=== PATIENT | female | born 1995 | race Two or more races ===

== ENCOUNTER 2025-02-09 22:33 | Inpatient (IN) | payer MEDICAID, OTHER ==
[~2025-02-09] VITALS: Ht 167.6 cm; Wt 53.8 kg
[2025-02-09 23:51] LABS: Hematocrit 30.7 % (36.0-46.0); Hemoglobin 10.8 g/dL (12.2-16.2); Mean Corpuscular Hemoglobin 33.4 pg (28.0-32.0); Mean Corpuscular Volume 95.2 fL (80.0-100.0); Nucleated Red Blood Cells % 0.2 %
[2025-02-10 00:11] LABS: Albumin 4.3 g/dL (3.2-4.8); Alkaline Phosphatase 100 U/L (46-116); Anion Gap 23 (5-15); BUN/Creatinine Ratio 28.8 (10.0-20.0); Blood Urea Nitrogen 17 mg/dL (9-23); Calcium 9.8 mg/dL (8.7-10.4); Carbon Dioxide 24 mmol/L (20-31); Chloride 94 mmol/L (98-107); Glucose 79 mg/dL (74-106); Lipase 33 U/L (12-53); Potassium 3.5 mmol/L (3.5-5.1); Sodium 141 mmol/L (136-145)
[2025-02-10 00:12] LABS: Alanine Aminotransferase 66 U/L (7-40); Bilirubin, Total 7.8 mg/dL (0.2-1.0); Total Protein 9.9 g/dL (5.7-8.2)
--- NOTE | 2025-02-10 00:14 | DVH ---
Exam: CT CT AB PEL WO CON-NO ORAL OR IV History: abd pain Comparison Study: None Technique: Multidetector spiral CT of the abdomen was performed from lung bases to pubic symphysis. Imaging was performed without IV contrast. Axial, coronal and sagittal multiplanar reformats were obtained from the axial data set by the technologist. Radiation Dose : 1. Abdomen/Pelvis: CTDIvol 5.1 mGy, DLP 307.11 mGy*cm. Findings: Evaluation of solid organs is limited due to lack of intravenous contrast use. Lung Bases: No acute or significant lung base finding. Normal heart size. No pleural or pericardial effusion. Liver: The liver is steatotic and enlarged, measuring 22.3 cm in craniocaudal dimension. No focal lesions. Gallbladder and Biliary Tree: Cholelithiasis. Spleen: Enlarged, measuring 16.2 cm. Pancreas: The pancreas is grossly normal in appearance. Adrenal Glands: Unremarkable Kidneys: Kidneys are grossly normal without calculi or hydronephrosis. Bladder: Grossly unremarkable for degree of distention. Bowel: The stomach is grossly normal in appearance. Small bowel and colon are normal in caliber and distribution. The appendix is normal. Ascites: Absent Lymphadenopathy: No mesenteric, retroperitoneal or periportal lymphadenopathy. Abdominal Wall and Mesentery: Unremarkable. Vasculature: The visualized abdominal aorta is normal in size and caliber. Evaluation of abdominal and pelvic vessels is limited due to lack of intravenous contrast. Pelvic Organs: Unremarkable Musculoskeletal: No aggressive focal bony lesions, acute fractures or dislocation. IMPRESSION: 1. Hepatosplenomegaly. 2. Cholelithiasis. Radiation optimization: All CT scans at this facility use at least one of these dose optimization techniques: automated exposure control mA and/or kV adjustment per patient size (includes targeted exams where dose is matched to clinical indication) or iterative reconstruction.
--- NOTE | 2025-02-10 00:32 | ED.PDOC ---
GI ASSESSMENT HPI Comments 29-year-old female complaining of generalized abdominal pain which started today. States she had some mild nausea and vomiting yesterday. Had also been experiencing some mild constipation. Says yesterday she did have a beer, thinks that may have set off her nausea and vomiting. Says she also noticed that she was more yellow yesterday and continued to get worse today. Says she has not been able to hold any fluid or food down today. Says she has also been constipated. Does report a history of anemia which she has had transfusions for, also history of cirrhosis. States her last menstrual cycle was September 08, 2024. Patient denies any other drug use. Chief Complaint: Abdominal Pain Time Seen by MD: 22:37 Reviewed Notes: Nurses Notes Allergies: Coded Allergies: NO KNOWN ALLERGIES (Unverified , 02/09/25) Information Source: Patient Mode of Arrival: Wheelchair Past Medical History PAST MEDICAL HISTORY: Anemia Surgical History: Denies all surgeries CLINICAL THERAPIST History: No Pertinent CLINICAL THERAPIST History Constitutional: reports: malaise; denies: chills, diaphoresis, fatigue, fever, sweats, weakness, others EENTM: denies: blurred vision, double vision, ear bleeding, ear discharge, ear drainage, ear pain, ear ringing, eye pain, eye redness, hearing loss, mouth pain, mouth swelling, nasal discharge, nose bleeding, nose congestion, nose pain, photophobia, tearing, throat pain, throat swelling, voice changes, others Respiratory: denies: cough, hemoptysis, orthopnea, SOB at rest, shortness of breath, SOB with excertion, stridor, wheezing, others Cardiovascular: denies: chest pain, dizzy spells, diaphoresis, Dyspnea on exertion, edema, irregular heart beat, left arm pain, lightheadedness, palpitations, PND, syncope, others Gastrointestinal: reports: nausea, vomiting; denies: abdomen distended, abdominal pain, blood streaked bowels, constipated, diarrhea, dysphagia, difficulty swallowing, hematemesis, melena, poor appetite, poor fluid intake, rectal bleeding, rectal pain, others Genitourinary: denies: abnormal vagina bleeding, burning, dyspareunia, dysuria, flank pain, frequency, hematuria, incontinence, pain, , vagina discharge, urgency, others Neurological: denies: dizziness, fainting, headache, left sided numbness, left sided weakness, numbness, paresthesia, pre-existing deficit, right sided numbn ess, right sided weakness, seizure, speech problems, tingling, tremors, weakness, others Musculoskeletal: denies: back pain, gout, joint pain, joint swelling, muscle pain, muscle stiffness, neck pain, others Integumetry: reports: bruises, change in color; denies: change in hair/nails, dryness, laceration, lesions, lumps, rash, wounds, others Physical Exam General Appearance: Moderate Distress, Normal HEENT: Normal ENT Inspection, Pharynx Normal, TMs Normal Neck: Full Range of Motion, Non-Tender, Normal, Normal Inspection Respiratory: Chest Non-Tender, Lungs Clear, No Accessory Muscle Use, No Respiratory Distress, Normal Breath Sounds Cardiovascular: No Edema, No JVD, No Murmur, No Gallop, Normal Peripheral Pulses, Regular Rate/Rhythm Breast Exam: Deferred Gastrointestinal: Diffuse (Diffuse abdominal tenderness. Abdomen is soft flat.), Normal Bowel Sounds, Soft Genitalia: Deferred Pelvic: Deferred Rectal: Deferred Extremities: No calf tenderness, Normal capillary refill, Normal inspection, Normal range of motion, Non-tender, No pedal edema Musculoskeletal : Apperance: Normal Neurologic: Alert, dough puncher II-XII nml as Tested, No Motor Deficits, Normal Affect, Normal Mood, No Sensory Deficits Cerebellar Function: Normal Reflexes: Normal Skin: Dry, Jaundice, Warm Lymphatic: No Adenopathy Was a procedure done? Was a procedure done?: No GI differential Dx Differential Diagnosis: Bowel Obstruction, Cholangitis, Cholecystitis, Gastritis/PUD, Gastroenteritis, GI hemorrhage X-Ray, Labs, Meds, VS Vital Signs Date Time Temp Pulse Resp B/P (MAP) Pulse Ox O2 Delivery O2 Flow Rate FiO2 02/09/25 22:48 98.6 122 20 134/93 97 98.6 Lab Test 02/09/25 23:40 Range/Units White Blood Count 8.6 4.4-10.8 10^3/uL Red Blood Count 3.23 L 4.0-5.20 10^6/uL Hemoglobin 10.8 L 12.2-16.2 g/dL Hematocrit 30.7 L 36.0-46.0 % Mean Corpuscular Volume 95.2 80.0-100.0 fL Mean Corpuscular Hemoglobin 33.4 H 28.0-32.0 pg Mean Corpuscular Hemoglobin Concent 35.0 32.0-36.0 g/dL Red Cell Distribution Width 14.6 H 11.8-14.3 % Platelet Count 80 L 140-450 10^3/uL Mean Platelet Volume 7.3 6.9-10.8 fL Neutrophils (%) (Auto) 85.7 H 37.0-80.0 % Lymphocytes (%) (Auto) 9.4 L 10.0-50.0 % Monocytes (%) (Auto) 3.1 0.0-12.0 % Eosinophils (%) (Auto) 0.3 0.0-7.0 % Basophils (%) (Auto) 1.5 0.0-2.0 % Neutrophils # (Auto) 7.4 1.6-8.6 10 ^3/uL Lymphocytes # (Auto) 0.8 0.4-5.4 10 ^3/uL Monocytes # (Auto) 0.3 0-1.3 10 ^3/uL Eosinophils # (Auto) 0 0-0.8 10 ^3/uL Basophils # (Auto) 0.1 0-0.2 10 ^3/uL Nucleated Red Blood Cells 0.2 % Sodium Level 141 136-145 mmol/L Potassium Level 3.5 3.5-5.1 mmol/L Chloride Level 94 L 98-107 mmol/L Carbon Dioxide Level 24 20-31 mmol/L Anion Gap 23 H 5-15 Blood Urea Nitrogen 17 9-23 mg/dL Creatinine 0.59 0.550-1.02 mg/dL Glomerular Filtration Rate Calc 123 >90 mL/min BUN/Creatinine Ratio 28.8 H 10.0-20.0 Serum Glucose 79 74-106 mg/dL Calcium Level 9.8 8.7-10.4 mg/dL Total Bilirubin 7.8 H 0.2-1.0 mg/dL Aspartate Amino Transferase (AST) 227 H 13-40 U/L Alanine Aminotransferase (ALT) 66 H 7-40 U/L Alkaline Phosphatase 100 46-116 U/L Total Protein 9.9 H 5.7-8.2 g/dL Albumin 4.3 3.2-4.8 g/dL Lipase 33 12-53 U/L X-Ray, Labs, Meds, VS Comment Patient has elevated T bili and elevated liver enzymes CT scan shows cholelithiasis with no obstructions Patient will be admitted for hyperbilirubinemia, cholelithiasis, a retractable abdominal pain, cyclical vomiting Recommend GI consult in the morning Patient hemodynamically stable Time of 1ST Reevaluation: 00:44 Reevaluation 1ST: Unchanged Patient Education/Counseling: Diagnosis, Treatment, Need For Follow Up Family Education/Counseling: Diagnosis SEPSIS Sepsis Screen Date sepsis recognized/suspect: Feb 09, 2025 Time Sepsis recognized/suspect: 2249 Recent Procedure: No On Antibiotic Therapy: No Respiratory Rate >20: No Heart Rate >90: Yes Temp<36 C (96.8 F) or >38.3 C: No SBP <90 or MAP <65 mmHG: No New Acute Mental Status Change: No Is the patient on CPAP, BIPAP,: No Physician Orders Ct Ab Pel Wo Con-No Oral Or Iv (02/09/25 23:20) Urinalysis (02/09/25 23:20) Drug Screen (02/09/25 23:20) Ondansetron Hcl (Zofran) (02/10/25 00:45) Sodium Chloride 0.9% (02/10/25 00:45) Vital Signs Date Time Temp Pulse Resp B/P (MAP) Pulse Ox O2 Delivery O2 Flow Rate FiO2 02/09/25 22:48 98.6 122 20 134/93 97 98.6 Laboratory Tests Test 02/09/25 23:40 White Blood Count 8.6 10^3/uL (4.4-10.8) Departure 1 Departure Time of Disposition: 00:29 Impression: Primary Impression: Hyperbilirubinemia Additional Impressions: Cholelithiasis Qualified Codes: K80.20 - Calculus of gallbladder without cholecystitis without obstruction Intractable abdominal pain Disposition: ADMITTED INPATIENT Condition: Stable Critical Care Note Critical Care Time?: No Stability Stability form required: No Heart Score Heart Score: Heart Score Response (Comments) Value History N/A 0 EKG N/A 0 Age N/A 0 Risk Factors N/A 0 Troponin N/A 0 Total 0 YEFRI SULLIVAN Feb 10, 2025 00:32
[2025-02-10] MEDS: ONDANSETRON HCL 4 MG/2 ML VIAL IV ONE (01:08)
[2025-02-10] MEDS: SODIUM CHLORIDE 0.9% 1,000 ML IV ONE (01:08)
[2025-02-10] MEDS ORDERED: MORPHINE SULFATE INJ 2 MG/ml SYRG IV PRN (01:15)
[2025-02-10] MEDS ORDERED: ONDANSETRON HCL 4 MG/2 ML VIAL IV PRN (01:15)
[2025-02-10] MEDS: PANTOPRAZOLE 40 MG TAB PO ONE (02:06)
--- NOTE | 2025-02-10 03:54 | DVHHP2 ---
History of Present Illness Reason for Visit: Abdominal pain History of Present Illness 29-year-old female presents for evaluation of abdominal pain. Patient with a history of liver cirrhosis secondary to alcohol abuse currently an active drinker reports a one day history of mid sharp abdominal pain with associated nausea and vomiting. Denies hematemesis or melena. No other acute complaints. Past Medical History Liver cirrhosis Past Surgical History Denies Family History Noncontributory Smoke: No ALCOHOL: heavy Drugs: None Lives: with Family Review of Systems Review of Systems Review of systems are currently negative otherwise addressed in HPI. Allergies: Coded Allergies: NO KNOWN ALLERGIES (Unverified , 02/09/25) Medications Current Medications Medications Dose Ordered Sig/Sofia Route Start Time Stop Time Status Last Admin Dose Admin Pantoprazole Sodium 40 mg DAILY@0600 PO 02/10/25 06:00 Tramadol HCl 50 mg Q4HP PRN PO 02/10/25 01:15 Ondansetron HCl 4 mg Q4HP PRN IV 02/10/25 01:15 Morphine Sulfate 2 mg Q8HPRN PRN IV 02/10/25 01:15 Chlordiazepoxide HCl 25 mg Q6HPRN PRN PO 02/10/25 01:15 Folic Acid 1 mg DAILY PO 02/10/25 10:00 Thiamine HCl 100 mg DAILY PO 02/10/25 10:00 Exam Vital Signs Vital Signs Date Time Temp Pulse Resp B/P (MAP) Pulse Ox O2 Delivery O2 Flow Rate FiO2 02/09/25 22:48 98.6 122 20 134/93 97 98.6 Exam Gen: 29-year-old female in mild distress Skin: Warm, dry, jaundice, no rash. HEENT: Normocephalic atraumatic, mucous membranes moist and pink. Neck: Cervical and supraclavicular nodes normal without enlargement, trachea is midline, thyroid gland is normal without masses. Pulmonary: Clear to auscultation and percussion bilaterally. Cardiac: Regular rate and rhythm. No murmur Abdomen: Soft, nontender, nondistended, bowel sounds present all 4 quadrants, no guarding, no rigidity, no organomegaly. Extremities: No cyanosis, clubbing, no edema Neuro: Cranial nerves II through XII grossly intact, normal affect and speech, no focal motor deficits. Labs/Xrays ORDERING PHYSICIAN: BAE*,CHRISTOPHER E DULITE MACHINE BLUER PROCEDURE(s): ABPL - CT AB PEL WO CON-NO ORAL OR IV REASON: abd pain ORDER NUMBER(s): [id number], ACCESSION NUMBER(s): [id number] Exam: CT CT AB PEL WO CON-NO ORAL OR IV History: abd pain Comparison Study: None Technique: Multidetector spiral CT of the abdomen was performed from lung bases to pubic symphysis. Imaging was performed without IV contrast. Axial, coronal and sagittal multiplanar reformats were obtained from the axial data set by the technologist. Radiation Dose : 1. Abdomen/Pelvis: CTDIvol 5.1 mGy, DLP 307.11 mGy*cm. Findings: Evaluation of solid organs is limited due to lack of intravenous contrast use. Lung Bases: No acute or significant lung base finding. Normal heart size. No pleural or pericardial effusion. Liver: The liver is steatotic and enlarged, measuring 22.3 cm in craniocaudal dimension. No focal lesions. Gallbladder and Biliary Tree: Cholelithiasis. Spleen: Enlarged, measuring 16.2 cm. Pancreas: The pancreas is grossly normal in appearance. Adrenal Glands: Unremarkable Kidneys: Kidneys are grossly normal without calculi or hydronephrosis. Bladder: Grossly unremarkable for degree of distention. Bowel: The stomach is grossly normal in appearance. Small bowel and colon are normal in caliber and distribution. The appendix is normal. Ascites: Absent Lymphadenopathy: No mesenteric, retroperitoneal or periportal lymphadenopathy. Abdominal Wall and Mesentery: Unremarkable. Vasculature: The visualized abdominal aorta is normal in size and caliber. Evaluation of abdominal and pelvic vessels is limited due to lack of intravenous contrast. Pelvic Organs: Unremarkable Musculoskeletal: No aggressive focal bony lesions, acute fractures or disloc ation. IMPRESSION: 1. Hepatosplenomegaly. 2. Cholelithiasis. Radiation optimization: All CT scans at this facility use at least one of these dose optimization techniques: automated exposure control mA and/or kV adjustment per patient size (includes targeted exams where dose is matched to clinical indication) or iterative reconstruction. ATED BY: CLAY MESSER MD DICTATED DATE/TIME: 02/10/25 0012 Labs Test 02/10/25 01:22 02/09/25 23:40 Range/Units Ammonia 42 H 11-32 umol/L White Blood Count 8.6 4.4-10.8 10^3/uL Red Blood Count 3.23 L 4.0-5.20 10^6/uL Hemoglobin 10.8 L 12.2-16.2 g/dL Hematocrit 30.7 L 36.0-46.0 % Mean Corpuscular Volume 95.2 80.0-100.0 fL Mean Corpuscular Hemoglobin 33.4 H 28.0-32.0 pg Mean Corpuscular Hemoglobin Concent 35.0 32.0-36.0 g/dL Red Cell Distribution Width 14.6 H 11.8-14.3 % Platelet Count 80 L 140-450 10^3/uL Mean Platelet Volume 7.3 6.9-10.8 fL Neutrophils (%) (Auto) 85.7 H 37.0-80.0 % Lymphocytes (%) (Auto) 9.4 L 10.0-50.0 % Monocytes (%) (Auto) 3.1 0.0-12.0 % Eosinophils (%) (Auto) 0.3 0.0-7.0 % Basophils (%) (Auto) 1.5 0.0-2.0 % Neutrophils # (Auto) 7.4 1.6-8.6 10 ^3/uL Lymphocytes # (Auto) 0.8 0.4-5.4 10 ^3/uL Monocytes # (Auto) 0.3 0-1.3 10 ^3/uL Eosinophils # (Auto) 0 0-0.8 10 ^3/uL Basophils # (Auto) 0.1 0-0.2 10 ^3/uL Nucleated Red Blood Cells 0.2 % Sodium Level 141 136-145 mmol/L Potassium Level 3.5 3.5-5.1 mmol/L Chloride Level 94 L 98-107 mmol/L Carbon Dioxide Level 24 20-31 mmol/L Anion Gap 23 H 5-15 Blood Urea Nitrogen 17 9-23 mg/dL Creatinine 0.59 0.550-1.02 mg/dL Glomerular Filtration Rate Calc 123 >90 mL/min BUN/Creatinine Ratio 28.8 H 10.0-20.0 Serum Glucose 79 74-106 mg/dL Calcium Level 9.8 8.7-10.4 mg/dL Total Bilirubin 7.8 H 0.2-1.0 mg/dL Aspartate Amino Transferase (AST) 227 H 13-40 U/L Alanine Aminotransferase (ALT) 66 H 7-40 U/L Alkaline Phosphatase 100 46-116 U/L Total Protein 9.9 H 5.7-8.2 g/dL Albumin 4.3 3.2-4.8 g/dL Lipase 33 12-53 U/L SEPSIS Sepsis Screen Date sepsis recognized/suspect: Feb 09, 2025 Time Sepsis recognized/suspect: 2249 Recent Procedure: No On Antibiotic Therapy: No Respiratory Rate >20: No Heart Rate >90: Yes Temp<36 C (96.8 F) or >38.3 C: No SBP <90 or MAP <65 mmHG: No New Acute Mental Status Change: No Is the patient on CPAP, BIPAP,: No Physician Orders Ct Ab Pel Wo Con-No Oral Or Iv (02/09/25 23:20) Urinalysis (02/09/25 23:20) Drug Screen (02/09/25 23:20) * Gi Dvh Workflow Developer (02/10/25 01:05) Pantoprazole Tablet (Protonix Tablet) (02/10/25 06:00) Tramadol Hcl (Ultram) (02/10/25 01:15) Admit (02/10/25 01:05) Ondansetron Hcl (Zofran) (02/10/25 01:15) Comprehensive Metabolic Panel (02/11/25 04:00) Condition: Stable (02/10/25 01:05) Clear Liq Diet (02/10/25 Breakfast) Bedrest With Bathroom Privileg (02/10/25 01:05) Morphine Sulfate Injection (02/10/25 01:15) Chlordiazepoxide Hcl Capsule (Librium Ca (02/10/25 01:15) Folic Acid Tablet (02/10/25 10:00) Thiamine Tab (02/10/25 10:00) Vital Signs Date Time Temp Pulse Resp B/P (MAP) Pulse Ox O2 Delivery O2 Flow Rate FiO2 02/09/25 22:48 98.6 122 20 134/93 97 98.6 Laboratory Tests Test 02/09/25 23:40 White Blood Count 8.6 10^3/uL (4.4-10.8) Medications Medications Dose Ordered Sig/Sofia Route Start Time Stop Time Status Last Admin Dose Admin Ondansetron HCl 4 mg ONCE ONCE IV 02/10/25 00:45 02/10/25 00:46 DC 02/10/25 01:08 4 MG Pantoprazole Sodium 40 mg ONCE ONCE PO 02/10/25 01:15 02/10/25 01:23 DC 02/10/25 02:06 40 MG Sodium Chloride 1,000 ml @ 1,000 mls/hr Q1H ONCE IV 02/10/25 00:45 02/10/25 01:44 DC 02/10/25 01:08 1,000 MLS/HR Assessment/Plan Assessment/Plan Assessment Acute abdominal pain Liver cirrhosis Jaundice Transaminitis Alcohol abuse Hyperammonemia Plan Admit the patient to [facility] [place]ist GI consult Clear liquid diet Lactulose Pain management Continue treatment per orders. Plan discussed with: Patient My Orders Orders - HUI ASTUDILLO Procedure Category Date Status Time * Gi Dvh Workflow Developer CONS 02/10/25 Transmitted 01:05 Pantoprazole Tablet PHA 02/10/25 In Process (Protonix Tablet) 06:00 Tramadol Hcl (Ultram) PHA 02/10/25 In Process 01:15 Admit ADMIT 02/10/25 Transmitted 01:05 Ondansetron Hcl PHA 02/10/25 In Process (Zofran) 01:15 Comprehensive LAB 02/11/25 Verified Metabolic Panel 04:00 Condition: Stable MELBA 02/10/25 In Process 01:05 Clear Liq Diet DIET 02/10/25 Transmitted Breakfast Bedrest With Bathroom MELBA 02/10/25 In Process Privileg 01:05 Morphine Sulfate PHA 02/10/25 In Process Injection 01:15 Chlordiazepoxide Hcl PHA 02/10/25 In Process Capsule (Librium Ca 01:15 Folic Acid Tablet PHA 02/10/25 In Process 10:00 Thiamine Tab PHA 02/10/25 In Process 10:00 Date of Service: Feb 09, 2025 Billing Provider: HUI ASTUDILLO Common Visit Codes: [id number] INP/OBS CARE (MOD) HUI ASTUDILLO Feb 10, 2025 03:54
[2025-02-10] MEDS: PANTOPRAZOLE 40 MG TAB PO SCH (06:25)
[2025-02-10 11:17] VITALS: RESP 17
[2025-02-10] MEDS ORDERED: DICL-545 (11:29)
[2025-02-10] MEDS: LACTULOSE 20Gm/30ML SOLN PO SCH (11:36)
[2025-02-10] MEDS: THIAMINE HCL 100 MG TAB PO SCH (11:36)
[2025-02-10] MEDS: FOLIC ACID 1 MG TAB PO SCH (11:36)
--- NOTE | 2025-02-10 12:25 | DVHPN2 ---
Subjective feeling well with no tremors Reviewed: H&P Changes from previous H/P or p: No Changes Objective Vitals Vital Signs Date Time Temp Pulse Resp B/P (MAP) Pulse Ox O2 Delivery O2 Flow Rate FiO2 02/10/25 10:31 98.3 109 18 118/61 (80) 98 98.3 General Appearance: Alert, Oriented X3 HEENT: Atraumatic Cardiovascular: Regular rate, Normal S1, Normal S2 Abdomen: Normal bowel sounds Medications Current Medications Medications Dose Ordered Sig/Sofia Route Start Time Stop Time Status Last Admin Dose Admin Pantoprazole Sodium 40 mg DAILY@0600 PO 02/10/25 06:00 02/10/25 06:25 40 MG Tramadol HCl 50 mg Q4HP PRN PO 02/10/25 01:15 Ondansetron HCl 4 mg Q4HP PRN IV 02/10/25 01:15 Morphine Sulfate 2 mg Q8HPRN PRN IV 02/10/25 01:15 Chlordiazepoxide HCl 25 mg Q6HPRN PRN PO 02/10/25 01:15 Folic Acid 1 mg DAILY PO 02/10/25 10:00 02/10/25 11:36 1 MG Thiamine HCl 100 mg DAILY PO 02/10/25 10:00 02/10/25 11:36 100 MG Lactulose 30 ml DAILY PO 02/10/25 10:00 02/10/25 11:36 30 ML Sodium Chloride 1,000 ml @ 125 mls/hr Q8H IV 02/10/25 10:45 Laboratory Results Laboratory Tests 02/09/25 23:40 Chemistry Test 02/09/25 23:40 Albumin 4.3 g/dL (3.2-4.8) Calcium Level 9.8 mg/dL (8.7-10.4) Total Protein 9.9 g/dL (5.7-8.2) H Lipid panel Test 02/09/25 23:40 Lipase 33 U/L (12-53) LFT Test 02/09/25 23:40 Alanine Aminotransferase (ALT) 66 U/L (7-40) H Alkaline Phosphatase 100 U/L (46-116) Aspartate Amino Transferase (AST) 227 U/L (13-40) H Total Bilirubin 7.8 mg/dL (0.2-1.0) H Assessment/Plan Assessment/Plan Acute abdominal pain Liver cirrhosis Jaundice Transaminitis Alcohol abuse Hyperammonemia Monitor LFts monitor for withdrawal lactulose GI consulted PPI BID Plan discussed with: Patient Date of Service: Feb 10, 2025 Billing Provider: RADHA MYLES MD Common Visit Codes: [id number] INP/OBS CARE(HIGH) RADHA MYLES MD Feb 10, 2025 12:25
[2025-02-10 12:35] VITALS: BP 135/67; PULSE 114; RESP 21; TEMP 97.9; O2SAT 98
[2025-02-10] MEDS: MORPHINE SULFATE 4 MG/ML SYR/VIAL IV PRN (13:11)
[2025-02-10] MEDS: SODIUM CHLORIDE 0.9% 1,000 ML IV SCH (13:11)
[2025-02-10 14:45] VITALS: BP 123/71; PULSE 102; RESP 18; TEMP 97.5; O2SAT 96
[2025-02-10] MEDS ORDERED: FOLIC ACID 1 MG in D5W 5% 50 ML INJ ONE (15:00)
--- NOTE | 2025-02-10 15:28 | DVHCONRES ---
Date Seen: Feb 10, 2025 Resident Creating Document: ALEXIS MOJICA RESIDENT Referring Physician Izzy PINA History of Present Illness 29-year-old female presented to ER with a chief complaint of intractable nausea and vomiting and abdominal pain starting gi. Patient reports that she had 2 cups of Tequila on following which she has been experiencing abdominal crampy pain, nausea and vomiting, nonbloody, unable to keep anything down, and therefore she decided to the ER. Patient was recently seen in [facility] for similar reasons after a binge drinking episode where she had upper endoscopy which showed esophageal varices and she required banding for the patient. Patient was visiting cousin on in [place] Past medical history: Chronic alcoholism, likely esophageal varices status post banding, chronic back pain Social history: Lost her house in [facility] in 2024, started drinking heav [place], smokes marijuana Patient seen and examined. Abdomen nontender, normoactive. Tachycardic sinus. Family History: Patient reports no known family medical history. Allergies: Coded Allergies: NO KNOWN ALLERGIES (Unverified , 02/09/25) Home Meds Reported Medications Diclofenac Sodium (Topical) (Aleve Arthritis Pain) 1 % Gel 02/10/25 Current Medications Current Medications Medications (Trade) Dose Ordered Sig/Sofia Route PRN Reason Start Time Stop Time Status Last Admin Pantoprazole Sodium (Protonix Tablet) 40 mg DAILY@0600 PO 02/10/25 06:00 02/10/25 06:25 Tramadol HCl (Ultram) 50 mg Q4HP PRN PO MODERATE PAIN (4-6 PAIN SCALE) 02/10/25 01:15 Ondansetron HCl (Zofran) 4 mg Q4HP PRN IV NAUSEA / VOMITING 02/10/25 01:15 Morphine Sulfate 2 mg Q8HPRN PRN IV SEVERE PAIN (7-10 PAIN SCALE) 02/10/25 01:15 02/10/25 12:43 DC Chlordiazepoxide HCl (Librium Capsule) 25 mg Q6HPRN PRN PO ALCOHOL WITHDRAWAL SYMPTOMS 02/10/25 01:15 Folic Acid 1 mg DAILY PO 02/10/25 10:00 02/10/25 11:36 Thiamine HCl 100 mg DAILY PO 02/10/25 10:00 02/10/25 11:36 Lactulose 30 ml DAILY PO 02/10/25 10:00 02/10/25 11:36 Sodium Chloride 1,000 ml @ 125 mls/hr Q8H IV 02/10/25 10:45 02/10/25 13:11 Morphine Sulfate 2 mg Q8HPRN PRN IV SEVERE PAIN (7-10 PAIN SCALE) 02/10/25 12:45 02/10/25 13:11 Folic Acid 1 mg/ Dextrose 50.2 ml @ 200.8 mls/ hr DAILY INJ 02/11/25 10:00 UNV Vital Signs Vital Signs Date Time Temp Pulse Resp B/P (MAP) Pulse Ox O2 Delivery O2 Flow Rate FiO2 02/10/25 13:41 89 17 110/78 02/10/25 12:35 97.9 98 97.9 02/10/25 11:17 Room Air* 0 21 Physical Exam Patient lying in bed, in no acute distress General: Well-built, afebrile, palor, mucosae are moist Cardiovascular: Tachycardic but Regular S1 and S2. No murmurs, gallops or rubs. No JVD elevation. No pedal edema Respiratory: Normal B/L air entry on room air. Clear lung sounds on auscultation Abdomen: Soft, nontender, nondistended, normoactive bowel sounds, no rebound tenderness, no organomegaly, no masses Genitourinary: Deferred MSK/skin: Mobilizes 4 limbs. Skin is dry and warm Neurological: No motor, no sensitive deficits, normal speech. Pupils are isocoric and reactive. Psych/Mental Status: A/Ox3 Labs/Diagnostic Data Labs Test 02/10/25 01:22 02/09/25 23:40 Range/Units Ammonia 42 H 11-32 umol/L White Blood Count 8.6 4.4-10.8 10^3/uL Red Blood Count 3.23 L 4.0-5.20 10^6/uL Hemoglobin 10.8 L 12.2-16.2 g/dL Hematocrit 30.7 L 36.0-46.0 % Mean Corpuscular Volume 95.2 80.0-100.0 fL Mean Corpuscular Hemoglobin 33.4 H 28.0-32.0 pg Mean Corpuscular Hemoglobin Concent 35.0 32.0-36.0 g/dL Red Cell Distribution Width 14.6 H 11.8-14.3 % Platelet Count 80 L 140-450 10^3/uL Mean Platelet Volume 7.3 6.9-10.8 fL Neutrophils (%) (Auto) 85.7 H 37.0-80.0 % Lymphocytes (%) (Auto) 9.4 L 10.0-50.0 % Monocytes (%) (Auto) 3.1 0.0-12.0 % Eosinophils (%) (Auto) 0.3 0.0-7.0 % Basophils (%) (Auto) 1.5 0.0-2.0 % Neutrophils # (Auto) 7.4 1.6-8.6 10 ^3/uL Lymphocytes # (Auto) 0.8 0.4-5.4 10 ^3/uL Monocytes # (Auto) 0.3 0-1.3 10 ^3/uL Eosinophils # (Auto) 0 0-0.8 10 ^3/uL Basophils # (Auto) 0.1 0-0.2 10 ^3/uL Nucleated Red Blood Cells 0.2 % Sodium Level 141 136-145 mmol/L Potassium Level 3.5 3.5-5.1 mmol/L Chloride Level 94 L 98-107 mmol/L Carbon Dioxide Level 24 20-31 mmol/L Anion Gap 23 H 5-15 Blood Urea Nitrogen 17 9-23 mg/dL Creatinine 0.59 0.550-1.02 mg/dL Glomerular Filtration Rate Calc 123 >90 mL/min BUN/Creatinine Ratio 28.8 H 10.0-20.0 Serum Glucose 79 74-106 mg/dL Calcium Level 9.8 8.7-10.4 mg/dL Total Bilirubin 7.8 H 0.2-1.0 mg/dL Aspartate Amino Transferase (AST) 227 H 13-40 U/L Alanine Aminotransferase (ALT) 66 H 7-40 U/L Alkaline Phosphatase 100 46-116 U/L Total Protein 9.9 H 5.7-8.2 g/dL Albumin 4.3 3.2-4.8 g/dL Lipase 33 12-53 U/L Assessment Acute alcoholic intoxication Alcoholic hepatitis-meld score pending History of esophageal varices status post banding Anemia likely mixed, macrocytic and microcytic Transaminitis Plan: Recommendation Continue monitoring for withdrawal, telemetry monitoring, monitor electrolytes. We recommend conservative management at this time. Meld score to be calculated one labs are back. Patient recently had EGD at [facility] which showed esophageal varices and patient underwent pending Follow up with liver ultrasound, FRANK, hepatitis panel, direct bilirubin Ativan PRN, Librium scheduled Supplement thiamine folic acid Pantoprazole 40 mg IV b.i.d. Clear liquid diet IV fluids Plan discussed with patient in which all questions have been answered Case discussed with Dr. Novoa Plan discussed with: Patient ALEXIS MOJICA RESIDENT Feb 10, 2025 15:28
[2025-02-10 16:12] LABS: INR 1.5 (0.9-1.15); Partial Thromboplastin Time 33.5 SEC (24.5-34.5); Prothrombin Time 15.3 sec (9.3-11.8)
[2025-02-10 16:15] LABS: Alkaline Phosphatase 91 U/L (46-116); Anion Gap 17 (5-15); BUN/Creatinine Ratio 22.4 (10.0-20.0); Blood Urea Nitrogen 17 mg/dL (9-23); Calcium 9.7 mg/dL (8.7-10.4); Carbon Dioxide 27 mmol/L (20-31); Glucose 76 mg/dL (74-106); Magnesium 1.9 mg/dL (1.6-2.6); Sodium 140 mmol/L (136-145)
[2025-02-10 16:16] LABS: Alanine Aminotransferase 65 U/L (7-40); Albumin 4.1 g/dL (3.2-4.8); Bilirubin, Total 7.6 mg/dL (0.2-1.0); Chloride 96 mmol/L (98-107); Potassium 3.4 mmol/L (3.5-5.1); Total Protein 9.1 g/dL (5.7-8.2)
[2025-02-10 16:19] LABS: Ferritin 235.3 ng/mL (10-291)
[2025-02-10 16:25] LABS: Iron 250.0 ug/dL (50-170)
[2025-02-10 16:28] LABS: Total Iron Binding Capacity 269.0 ug/dL (250-425)
--- NOTE | 2025-02-10 16:51 | DVH ---
INDICATION: transamnitis TECHNIQUE: Multiple real-time sonographic images were obtained of the right upper quadrant. COMPARISON: None FINDINGS: The liver demonstrates homogeneous echotexture without focal mass lesions. The liver measures 21.1 cm. There is no intrahepatic or extrahepatic ductal dilatation. The common duct measures 0.6 cm. Cholelithiasis. The gallbladder wall measures 0.2 cm and is within normal limits. The right kidney measures 12.8 cm. The right kidney is normal in contour, size, and shape. The echogenicity is normal. There is no hydronephrosis. The pancreas is not well visualized due to overlying bowel gas. IMPRESSION: Cholelithiasis. Hepatomegaly.
[2025-02-10 16:54] VITALS: BP 121/67; PULSE 117; RESP 16; TEMP 97.2; O2SAT 96
[2025-02-10 20:00] VITALS: PULSE 90; RESP 16; O2SAT 96
[2025-02-10 21:00] VITALS: BP 120/66; PULSE 90; RESP 16; TEMP 98.1; O2SAT 96
[2025-02-10] MEDS: PANTOPRAZOLE 40 MG/10 ML VIAL INJ IV SCH (22:33)
[2025-02-10] MEDS: SUCRALFATE 1 GM/10 ML ORAL SUSP PO SCH (22:33)
[2025-02-11] VITALS (7 sets, daily range): BP systolic 118–128; BP diastolic 72–77; PULSE 74–100; RESP 17–20; TEMP 97–98.6; O2SAT 93–98
[2025-02-11 05:41] LABS: Albumin 3.5 g/dL (3.2-4.8); Alkaline Phosphatase 80 U/L (46-116); Anion Gap 12 (5-15); BUN/Creatinine Ratio 14.3 (10.0-20.0); Blood Urea Nitrogen 10 mg/dL (9-23); Calcium 9.0 mg/dL (8.7-10.4); Carbon Dioxide 30 mmol/L (20-31); Glucose 76 mg/dL (74-106); Sodium 138 mmol/L (136-145); Total Protein 8.1 g/dL (5.7-8.2)
[2025-02-11 05:44] LABS: Alanine Aminotransferase 62 U/L (7-40); Bilirubin, Total 6.0 mg/dL (0.2-1.0); Chloride 96 mmol/L (98-107); Potassium 3.0 mmol/L (3.5-5.1)
[2025-02-11] MEDS ORDERED: FOLIC ACID 1 MG in D5W 5% 50 ML INJ SCH (10:00)
--- NOTE | 2025-02-11 11:55 | DVHPN2 ---
Progress Note Date Seen: Feb 11, 2025 Resident Creating Document: ALEXIS MOJICA RESIDENT Medical Necessity Reason Pt with a Central, PICC or Fol: No Subjective Review of Systems 29-year-old female presented to ER with a chief complaint of intractable nausea and vomiting and abdominal pain starting Thanksgiving. Patient reports that she had 2 cups of Tequila on gi following which she has been experiencing abdominal crampy pain, nausea and vomiting, nonbloody, unable to keep anything down, and therefore she decided to the ER. Patient was recently seen in [facility] for similar reasons after a binge drinking episode where she had upper endoscopy which showed esophageal varices and she required banding for the patient. Patient was visiting cousin on in [place] Past medical history: Chronic alcoholism, likely esophageal varices status post banding, chronic back pain Social history: Lost her house in [place] in 2024, started drinking heavily, smokes marijuana 02/10-Patient seen and examined. Abdomen nontender, normoactive. Tachycardic sinus. 02/11 patient seen and examined. Reports feeling better. FRANK positive. Objective vital signs Vital Sign Date Time Temp Pulse Resp B/P (MAP) Pulse Ox O2 Delivery O2 Flow Rate FiO2 02/11/25 09:00 97.0 100 20 118/74 (89) 98 97.0 02/11/25 08:00 Room Air* 0 21 Total Intake and Output 02/10/25 02/10/25 02/11/25 15:00 23:00 07:00 Intake Total 700 ml 410 ml Balance 700 ml 410 ml medications Current Medications Medications Dose Ordered Sig/Sofia Route Start Time Stop Time Status Last Admin Dose Admin Tramadol HCl 50 mg Q4HP PRN PO 02/10/25 01:15 02/11/25 09:52 50 MG Ondansetron HCl 4 mg Q4HP PRN IV 02/10/25 01:15 Chlordiazepoxide HCl 25 mg Q6HPRN PRN PO 02/10/25 01:15 Folic Acid 1 mg DAILY PO 02/10/25 10:00 02/11/25 09:47 1 MG Thiamine HCl 100 mg DAILY PO 02/10/25 10:00 02/11/25 09:47 100 MG Lactulose 30 ml DAILY PO 02/10/25 10:00 02/11/25 09:47 30 ML Sodium Chloride 1,000 ml @ 125 mls/hr Q8H IV 02/10/25 10:45 02/11/25 09:52 125 MLS/HR Morphine Sulfate 2 mg Q8HPRN PRN IV 02/10/25 12:45 02/10/25 13:11 2 MG Pantoprazole Sodium 40 mg BID IV 02/10/25 22:00 02/11/25 09:48 40 MG Sucralfate 1 gm BID@0600,2200 PO 02/10/25 22:00 02/11/25 06:11 1 GM Examination Patient lying in bed, in no acute distress General: Well-built, afebrile, palor, mucosae are moist Cardiovascular: Tachycardic but Regular S1 and S2. No murmurs, gallops or rubs. No JVD elevation. No pedal edema Respiratory: Normal B/L air entry on room air. Clear lung sounds on auscultation Abdomen: Soft, nontender, nondistended, normoactive bowel sounds, no rebound tenderness, no organomegaly, no masses Genitourinary: Deferred MSK/skin: Mobilizes 4 limbs. Skin is dry and warm Neurological: No motor, no sensitive deficits, normal speech. Pupils are isocoric and reactive. 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 Started prednisolone 40 mg daily p.o. FRANK positive, follow up with the antimitochondrial, anti-smooth muscle antibody Ursodiol b.i.d. for 7 days We will consider liver biopsy Continue monitoring for withdrawal, telemetry monitoring, monitor electrolytes. Patient recently had EGD at [facility] which showed esophageal varices and patient underwent pending Liver ultrasound shows cholelithiasis. Hepatomegaly. Follow up with hepatitis panel. Ativan PRN, Librium scheduled Supplement thiamine folic acid Pantoprazole 40 mg IV b.i.d. Advanced diet as tolerated. IV fluids Plan discussed with patient in which all questions have been answered Case discussed with Dr. Novoa Plan discussed with: Patient My Orders My Orders Orders - ALEXIS MOJICA Procedure Category Date Status Time Drug Screen LAB 02/10/25 Logged 14:59 Acute Hepatitis Panel LAB 02/10/25 In Process 15:01 Comprehensive LAB 02/10/25 In Process Hepatitis Panel 15:01 LIVER US 02/10/25 Resulted 15:02 Pantoprazole PHA 02/10/25 In Process (Protonix) 22:00 Sucralfate Susp PHA 02/10/25 In Process (Carafate Susp) 22:00 ALEXIS MOJICA Feb 11, 2025 11:55
[2025-02-11] MEDS: URSODIOL 300 MG CAP PO SCH (13:03)
[2025-02-11] MEDS: predniSONE 20 MG TAB PO ONE (13:03)
--- NOTE | 2025-02-11 15:01 | DVHPN2 ---
Subjective feeling well with no tremors Reviewed: H&P Changes from previous H/P or p: No Changes Objective Vitals Vital Signs Date Time Temp Pulse Resp B/P (MAP) Pulse Ox O2 Delivery O2 Flow Rate FiO2 02/11/25 13:00 98.3 98 17 128/73 (91) 97 98.3 02/11/25 08:00 Room Air* 0 21 Intake/Output Intake and Output 02/11/25 07:00 Intake Total 1110 ml Balance 1110 ml Intake Oral 710 ml IV Total 400 ml # Voids 2 General Appearance: Alert, Oriented X3 HEENT: Atraumatic Cardiovascular: Regular rate, Normal S1, Normal S2 Abdomen: Normal bowel sounds Medications Current Medications Medications Dose Ordered Sig/Osfia Route Start Time Stop Time Status Last Admin Dose Admin Tramadol HCl 50 mg Q4HP PRN PO 02/10/25 01:15 02/11/25 09:52 50 MG Ondansetron HCl 4 mg Q4HP PRN IV 02/10/25 01:15 Chlordiazepoxide HCl 25 mg Q6HPRN PRN PO 02/10/25 01:15 Folic Acid 1 mg DAILY PO 02/10/25 10:00 02/11/25 09:47 1 MG Thiamine HCl 100 mg DAILY PO 02/10/25 10:00 02/11/25 09:47 100 MG Lactulose 30 ml DAILY PO 02/10/25 10:00 02/11/25 09:47 30 ML Sodium Chloride 1,000 ml @ 125 mls/hr Q8H IV 02/10/25 10:45 02/11/25 09:52 125 MLS/HR Morphine Sulfate 2 mg Q8HPRN PRN IV 02/10/25 12:45 02/10/25 13:11 2 MG Pantoprazole Sodium 40 mg BID IV 02/10/25 22:00 02/11/25 09:48 40 MG Sucralfate 1 gm BID@0600,2200 PO 02/10/25 22:00 02/11/25 06:11 1 GM Prednisone 40 mg DAILY PO 02/12/25 10:00 Ursodiol 300 mg BID PO 02/11/25 12:00 02/17/25 23:33 02/11/25 13:03 300 MG Laboratory Results Laboratory Tests 02/09/25 23:40 02/11/25 04:36 Chemistry Test 02/10/25 15:29 02/11/25 04:36 Albumin 4.1 g/dL (3.2-4.8) 3.5 g/dL (3.2-4.8) Calcium Level 9.7 mg/dL (8.7-10.4) 9.0 mg/dL (8.7-10.4) Magnesium Level 1.9 mg/dL (1.6-2.6) Total Protein 9.1 g/dL (5.7-8.2) H 8.1 g/dL (5.7-8.2) Coagulation Test 02/10/25 15:29 Prothrombin Time 15.3 sec (9.3-11.8) H Prothrombin Time INR 1.50 (0.9-1.15) H Activated Partial Thromboplast Time 33.5 SEC (24.5-34.5) LFT Test 02/10/25 15:29 02/11/25 04:36 Alanine Aminotransferase (ALT) 65 U/L (7-40) H 62 U/L (7-40) H Alkaline Phosphatase 91 U/L (46-116) 80 U/L (46-116) Aspartate Amino Transferase (AST) 219 U/L (13-40) H 218 U/L (13-40) H Direct Bilirubin 2.8 mg/dL (<0.3) H Total Bilirubin 7.6 mg/dL (0.2-1.0) H 6.0 mg/dL (0.2-1.0) H HgA1c, TSH Test 02/10/25 15:29 Thyroid Stimulating Hormone (TSH) 0.67 uIU/mL (0.55-4.78) Assessment/Plan Assessment/Plan Acute abdominal pain Liver cirrhosis Jaundice Transaminitis Alcohol abuse Hyperammonemia Monitor LFts monitor for withdrawal lactulose GI consulted PPI BID Plan discussed with: Patient Date of Service: Feb 11, 2025 Billing Provider: RADHA MYLES MD Common Visit Codes: [id number] INP/OBS CARE(HIGH) RADHA MYLES MD Feb 11, 2025 15:01
[2025-02-12] VITALS (8 sets, daily range): BP systolic 116–128; BP diastolic 71–84; PULSE 85–121; RESP 14–20; TEMP 97.8–98.9; O2SAT 95–99
[2025-02-12] MEDS: POTASSIUM CHL 20 Meq TABLET PO ONE (11:43)
[2025-02-12] MEDS: predniSONE 20 MG TAB PO SCH (11:44)
[2025-02-12 11:54] LABS: Hepatitis A Total Antibody Positive (Negative)
[2025-02-12 11:55] LABS: Hepatitis B Surface Antigen Negative (Negative)
[2025-02-12 11:56] LABS: Hepatitis C Antibody Negative (Negative)
--- NOTE | 2025-02-12 12:03 | DVHPN2 ---
Progress Note Date Seen: Feb 12, 2025 Resident Creating Document: ALEXIS MOJICA RESIDENT Medical Necessity Reason Pt with a Central, PICC or Fol: No Subjective Review of Systems 29-year-old female presented to ER with a chief complaint of intractable nausea and vomiting and abdominal pain starting Thanksgiving. Patient reports that she had 2 cups of Tequila on Thanksgi following which she has been experiencing abdominal crampy pain, nausea and vomiting, nonbloody, unable to keep anything down, and therefore she decided to the ER. Patient was recently seen in [facility] for similar reasons after a binge drinking episode where she had upper endoscopy which showed esophageal varices and she required banding for the patient. Patient was visiting cousin on in [place] Past medical history: Chronic alcoholism, likely esophageal varices status post banding, chronic back pain Social history: Lost her house in [place] in 2024, started drinking heavily, smokes marijuana 02/10-Patient seen and examined. Abdomen nontender, normoactive. Tachycardic sinus. 02/11 patient seen and examined. Reports feeling better. FRANK positive. 02/12-patient seen and examined. Denies abdominal pain, constipation or diarrhea. Diet advanced to full liquid l Objective vital signs Vital Sign Date Time Temp Pulse Resp B/P (MAP) Pulse Ox O2 Delivery O2 Flow Rate FiO2 02/12/25 09:00 97.8 85 18 128/75 (92) 95 97.8 02/11/25 20:00 Room Air* 0 21 Total Intake and Output 02/11/25 02/11/25 02/12/25 15:00 23:00 07:00 Intake Total 3145 ml 700 ml Balance 3145 ml 700 ml medications Current Medications Medications Dose Ordered Sig/Sofia Route Start Time Stop Time Status Last Admin Dose Admin Tramadol HCl 50 mg Q4HP PRN PO 02/10/25 01:15 02/12/25 11:42 50 MG Ondansetron HCl 4 mg Q4HP PRN IV 02/10/25 01:15 Chlordiazepoxide HCl 25 mg Q6HPRN PRN PO 02/10/25 01:15 02/12/25 11:44 25 MG Folic Acid 1 mg DAILY PO 02/10/25 10:00 02/12/25 11:44 1 MG Thiamine HCl 100 mg DAILY PO 02/10/25 10:00 02/12/25 11:44 100 MG Lactulose 30 ml DAILY PO 02/10/25 10:00 02/12/25 11:44 30 ML Sodium Chloride 1,000 ml @ 125 mls/hr Q8H IV 02/10/25 10:45 02/12/25 04:47 125 MLS/HR Morphine Sulfate 2 mg Q8HPRN PRN IV 02/10/25 12:45 02/10/25 13:11 2 MG Pantoprazole Sodium 40 mg BID IV 02/10/25 22:00 02/12/25 11:44 40 MG Sucralfate 1 gm BID@0600,2200 PO 02/10/25 22:00 02/12/25 08:16 1 GM Prednisone 40 mg DAILY PO 02/12/25 10:00 02/12/25 11:44 40 MG Ursodiol 300 mg BID PO 02/11/25 12:00 02/17/25 23:33 02/12/25 11:43 300 MG Potassium Chloride 100 ml @ 50 mls/hr Q2H IV 02/12/25 10:00 02/12/25 13:59 Examination Patient lying in bed, in no acute distress General: Well-built, afebrile, palor, mucosae are moist Cardiovascular: Tachycardic but Regular S1 and S2. No murmurs, gallops or rubs. No JVD elevation. No pedal edema Respiratory: Normal B/L air entry on room air. Clear lung sounds on auscultation Abdomen: Soft, nontender, nondistended, normoactive bowel sounds, no rebound tenderness, no organomegaly, no masses Genitourinary: Deferred MSK/skin: Mobilizes 4 limbs. Skin is dry and warm Neurological: No motor, no sensitive deficits, normal speech. Pupils are isocoric and reactive. 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 Continue prednisolone 40 mg daily p.o. starting 02/11, she'd require prednisone at discharge Patient likely has autoimmune hepatitis and would benefit from liver biopsy. FRANK positive, follow up with the antimitochondrial, anti-smooth muscle antibody Ursodiol b.i.d. for 7 days Continue monitoring for withdrawal, telemetry monitoring, monitor electrolytes. Patient recently had EGD at [facility] which showed esophageal varices and patient underwent banding Liver ultrasound shows cholelithiasis. Hepatomegaly. Follow up with hepatitis panel. Ativan PRN, Librium scheduled Supplement thiamine folic acid Pantoprazole 40 mg IV b.i.d. Advanced diet as tolerated. IV fluids Plan discussed with patient in which all questions have been answered Case discussed with Dr. Novoa Plan discussed with: Patient ALEXIS MOJICA RESIDENT Feb 12, 2025 12:02
[2025-02-12 13:15] LABS: Albumin 3.7 g/dL (3.2-4.8); Alkaline Phosphatase 86 U/L (46-116); Anion Gap 9 (5-15); Calcium 9.4 mg/dL (8.7-10.4); Carbon Dioxide 29 mmol/L (20-31); Chloride 100 mmol/L (98-107); Sodium 138 mmol/L (136-145)
[2025-02-12 13:16] LABS: Alanine Aminotransferase 78 U/L (7-40); BUN/Creatinine Ratio 6.7 (10.0-20.0); Bilirubin, Total 5.3 mg/dL (0.2-1.0); Blood Urea Nitrogen < 5 mg/dL (9-23); Glucose 113 mg/dL (74-106); Potassium 2.9 mmol/L (3.5-5.1); Total Protein 8.7 g/dL (5.7-8.2)
[2025-02-12] MEDS: POTASSIUM CHL 20MEQ/100ML 100 ML IV SCH (14:24)
[2025-02-12] MEDS: ADENOSINE 6 MG/2 ML INJ IV ONE (15:08)
--- NOTE | 2025-02-12 15:55 | DVHPN2 ---
Subjective feeling well with no tremors Reviewed: H&P Changes from previous H/P or p: No Changes Objective Vitals Vital Signs Date Time Temp Pulse Resp B/P (MAP) Pulse Ox O2 Delivery O2 Flow Rate FiO2 02/12/25 13:00 98.1 103 18 127/84 (98) 95 98.1 02/11/25 20:00 Room Air* 0 21 Intake/Output Intake and Output 02/12/25 05:00 Intake Total 3845 ml Balance 3845 ml Intake Oral 2470 ml IV Total 1375 ml # Voids 8 General Appearance: Alert, Oriented X3 HEENT: Atraumatic Cardiovascular: Regular rate, Normal S1, Normal S2 Abdomen: Normal bowel sounds Medications Current Medications Medications Dose Ordered Sig/Sofia Route Start Time Stop Time Status Last Admin Dose Admin Tramadol HCl 50 mg Q4HP PRN PO 02/10/25 01:15 02/12/25 11:42 50 MG Ondansetron HCl 4 mg Q4HP PRN IV 02/10/25 01:15 Chlordiazepoxide HCl 25 mg Q6HPRN PRN PO 02/10/25 01:15 02/12/25 11:44 25 MG Folic Acid 1 mg DAILY PO 02/10/25 10:00 02/12/25 11:44 1 MG Thiamine HCl 100 mg DAILY PO 02/10/25 10:00 02/12/25 11:44 100 MG Lactulose 30 ml DAILY PO 02/10/25 10:00 02/12/25 11:44 30 ML Sodium Chloride 1,000 ml @ 125 mls/hr Q8H IV 02/10/25 10:45 02/12/25 04:47 125 MLS/HR Morphine Sulfate 2 mg Q8HPRN PRN IV 02/10/25 12:45 02/10/25 13:11 2 MG Pantoprazole Sodium 40 mg BID IV 02/10/25 22:00 02/12/25 11:44 40 MG Sucralfate 1 gm BID@0600,2200 PO 02/10/25 22:00 02/12/25 08:16 1 GM Prednisone 40 mg DAILY PO 02/12/25 10:00 02/12/25 11:44 40 MG Ursodiol 300 mg BID PO 02/11/25 12:00 02/17/25 23:33 02/12/25 11:43 300 MG Laboratory Results Laboratory Tests 12/2/25 23:40 02/12/25 12:20 Chemistry Test 02/12/25 12:20 Albumin 3.7 g/dL (3.2-4.8) Calcium Level 9.4 mg/dL (8.7-10.4) Total Protein 8.7 g/dL (5.7-8.2) H LFT Test 02/12/25 12:20 Alanine Aminotransferase (ALT) 78 U/L (7-40) H Alkaline Phosphatase 86 U/L (46-116) Aspartate Amino Transferase (AST) 215 U/L (13-40) H Total Bilirubin 5.3 mg/dL (0.2-1.0) H Assessment/Plan Assessment/Plan Acute abdominal pain Liver cirrhosis Jaundice Transaminitis Alcohol abuse Hyperammonemia SVT Monitor LFts monitor for withdrawal lactulose GI consulted>prednisone PPI BID Valvalva maneuver Consult cardiology Echocardiogram Plan discussed with: Patient Date of Service: Feb 12, 2025 Billing Provider: RADHA MYLES MD Common Visit Codes: [id number] INP/OBS CARE(HIGH) RADHA MYLES MD Feb 12, 2025 15:54
[2025-02-12 16:19] LABS: Chloride 102 mmol/L (98-107); Potassium 3.5 mmol/L (3.5-5.1); Sodium 139 mmol/L (136-145)
[2025-02-12 16:20] LABS: Anion Gap 9 (5-15); Carbon Dioxide 28 mmol/L (20-31)
[2025-02-12 16:21] LABS: Calcium 9.1 mg/dL (8.7-10.4)
[2025-02-12 16:32] LABS: BUN/Creatinine Ratio 6.8 (10.0-20.0); Blood Urea Nitrogen < 5 mg/dL (9-23); Glucose 122 mg/dL (74-106); Magnesium 1.6 mg/dL (1.6-2.6)
[2025-02-12] MEDS: POTASSIUM CHL 20MEQ/100ML 100 ML IV ONE (22:15)
[2025-02-13] VITALS (8 sets, daily range): BP systolic 113–128; BP diastolic 66–80; PULSE 75–100; RESP 16–18; TEMP 97.5–99.4; O2SAT 96–100
[2025-02-13 06:14] LABS: Alkaline Phosphatase 78 U/L (46-116); Anion Gap 7 (5-15); Calcium 9.0 mg/dL (8.7-10.4); Carbon Dioxide 25 mmol/L (20-31); Chloride 104 mmol/L (98-107); Glucose 100 mg/dL (74-106); Potassium 4.0 mmol/L (3.5-5.1); Sodium 136 mmol/L (136-145); Total Protein 7.9 g/dL (5.7-8.2)
[2025-02-13 06:15] LABS: Albumin 3.4 g/dL (3.2-4.8)
[2025-02-13 06:16] LABS: Alanine Aminotransferase 74 U/L (7-40); BUN/Creatinine Ratio 9.4 (10.0-20.0); Bilirubin, Total 3.8 mg/dL (0.2-1.0); Blood Urea Nitrogen < 5 mg/dL (9-23)
--- NOTE | 2025-02-13 10:38 | ECG ---
[facility] Test Date: 2025-02-12 Test Time: 15:10:47 Pat Name: RANDOLPH GOODE Department: Room: [facility]2T B Gender: F Pearl Stringer: Chika Lyons RN : 1995 Requested By: OSIEL PINK Order Number: [id number] Reading MD: Sherif Petit Measurements Intervals [place] Rate: 118 P: 53 OH: 155 QRS: -11 QRSD: 92 T: 4 QT: 343 QTc: 481 Interpretive Statements Sinus tachycardia Inferior infarct, old Borderline ST elevation, anterior leads Electronically Signed On 02-18-2025 18:19:39 PST by Sherif Petit Please click the below link to view image of tracing.
--- NOTE | 2025-02-13 10:38 | ECG ---
[facility] Test Date: 2025-02-12 Test Time: 14:40:37 Pat Name: RANDOLPH GOODE Department: Room: [facility]2T B Gender: F In Store Representative: Chika Lyons RN : 1995 Requested By: OSIEL PINK Order Number: [id number] Reading MD: Sherif Petit Measurements Intervals [place] Rate: 188 P: 53 MS: 118 QRS: 3 QRSD: 95 T: 33 QT: 279 QTc: 494 Interpretive Statements Sinus tachycardia Sinus pause ST depression, probably rate related Borderline ST elevation, anterior leads Borderline prolonged QT interval Electronically Signed On 02-18-2025 18:19:28 PST by Sherif Petit Please click the below link to view image of tracing.
[2025-02-13] MEDS: ASPirin-EC 81 mg tab PO ONE (11:30)
--- NOTE | 2025-02-13 14:17 | DVHPN2 ---
Subjective feeling well with no tremors Reviewed: H&P Changes from previous H/P or p: No Changes Objective Vitals Vital Signs Date Time Temp Pulse Resp B/P (MAP) Pulse Ox O2 Delivery O2 Flow Rate FiO2 02/13/25 13:00 99.4 99 17 125/74 (91) 98 99.4 02/13/25 08:00 Room Air* 0 21 Intake/Output Intake and Output 02/13/25 07:00 Intake Total 3935 ml Balance 3935 ml Intake Oral 2885 ml IV Total 1050 ml # Voids 4 # Bowel Movements 2 General Appearance: Alert, Oriented X3 HEENT: Atraumatic Cardiovascular: Regular rate, Normal S1, Normal S2 Abdomen: Normal bowel sounds Medications Current Medications Medications Dose Ordered Sig/Sofia Route Start Time Stop Time Status Last Admin Dose Admin Tramadol HCl 50 mg Q4HP PRN PO 02/10/25 01:15 02/13/25 04:26 50 MG Ondansetron HCl 4 mg Q4HP PRN IV 02/10/25 01:15 Chlordiazepoxide HCl 25 mg Q6HPRN PRN PO 02/10/25 01:15 02/13/25 04:26 25 MG Folic Acid 1 mg DAILY PO 02/10/25 10:00 02/13/25 08:49 1 MG Thiamine HCl 100 mg DAILY PO 02/10/25 10:00 02/13/25 08:49 100 MG Lactulose 30 ml DAILY PO 02/10/25 10:00 02/13/25 08:49 30 ML Sodium Chloride 1,000 ml @ 125 mls/hr Q8H IV 02/10/25 10:45 02/13/25 08:50 125 MLS/HR Morphine Sulfate 2 mg Q8HPRN PRN IV 02/10/25 12:45 02/10/25 13:11 2 MG Pantoprazole Sodium 40 mg BID IV 02/10/25 22:00 02/13/25 08:48 40 MG Sucralfate 1 gm BID@0600,2200 PO 02/10/25 22:00 02/13/25 05:20 1 GM Prednisone 40 mg DAILY PO 02/12/25 10:00 02/13/25 08:50 40 MG Ursodiol 300 mg BID PO 02/11/25 12:00 02/17/25 23:33 02/13/25 08:50 300 MG Aspirin 81 mg DAILY PO 02/14/25 10:00 Laboratory Results Laboratory Tests 02/09/25 23:40 02/13/25 05:08 Chemistry Test 02/12/25 15:38 02/13/25 05:08 Calcium Level 9.1 mg/dL (8.7-10.4) 9.0 mg/dL (8.7-10.4) Magnesium Level 1.6 mg/dL (1.6-2.6) Albumin 3.4 g/dL (3.2-4.8) Total Protein 7.9 g/dL (5.7-8.2) Cardiac Markers Test 02/13/25 05:05 B-Type Natriuretic Peptide 219.16 pg/mL (0-100) LFT Test 02/13/25 05:08 Alanine Aminotransferase (ALT) 74 U/L (7-40) H Alkaline Phosphatase 78 U/L (46-116) Aspartate Amino Transferase (AST) 173 U/L (13-40) H Total Bilirubin 3.8 mg/dL (0.2-1.0) H Assessment/Plan Assessment/Plan Acute abdominal pain Liver cirrhosis Jaundice Transaminitis Alcohol abuse Hyperammonemia SVT Monitor LFts monitor for withdrawal lactulose GI consulted>prednisone PPI BID Pending cardiology and echocardiogram Plan discussed with: Patient My Orders Orders - RADHA MYLES MD Procedure Category Date Status Time * Cardiology Consult CONS 02/12/25 Transmitted 15:55 Aspirin Enteric PHA 02/14/25 In Process Coated Tablet 10:00 Date of Service: Feb 13, 2025 Billing Provider: RADHA MYLES MD Common Visit Codes: [id number] INP/OBS CARE(HIGH) RADHA MYLES MD Feb 13, 2025 14:17
--- NOTE | 2025-02-13 14:25 | DVHSR ---
APPROVED REPORT EXAM: Two-dimensional and M-mode echocardiogram with Doppler, color Doppler and Bubble Study. Blood Pressure: 128/80 mmHg INDICATION eval RISK FACTORS Height: 5'6, Weight: 115 DIMENSIONS LVDd 5.6 (3.8-5.7cm) LA (2D) 5.5 (1.9-4.0cm) Aortic Root 3.0 (2.0-3.7cm) LVDs 3.6 (2.5-4.0cm) LA (MM) (1.9-4.0cm) Aortic Cusp Exc 1.8 (1.5-2.0cm) EF (%) 65.0 (55-70%) Rt. Atrium 4.6 (1.9-4.0cm) Asc. Aorta 2.7 cm IVSd 0.7 (0.7-1.1cm) RV (D) 4.0 (1.8-2.4cm) PWd 0.9 (0.7-1.1cm) Mitral Valve Mitral Mitral Stenosis E wave 1.11m/s MV Mean GR. mmHg A wave 0.82m/s MV Peak GR. 79mmHg E/A ratio 1.4 2D MVA cm2 DECEL Time 174ms PRESS 1/2 Time ms Aortic Valve Aortic Valve Aortic Stenosis V1 1.26m/s AO Mean GR. 12mmHg V2 2.37m/s AO Peak GR. 23mmHg LVOT Diameter 2.1 (1.8-2.4cm) Doppler MARIAH 1.84cm2 Pulmonic Valve V2 1.56m/s Tricuspid Valve TR Velocity 2.91m/s RVSP 62mmHg ATRIA Injection of bubbles documented an interatrial shunt. Conclusion 1) Normal right and left ventricle systolic function with estimated LV ejection fraction of 65%. There is a normal LV wall motion. LV diastolic function is normal. 2)Positive bubble study suggestive of possible PFO, however, may consider REYNALDO for further evaluation if clinically correlated 3)Biatrial dilatation 4)Estimated right ventricular systolic pressure 30-35 mmhg
--- NOTE | 2025-02-13 16:15 | DVHINCON2 ---
Date Seen: Feb 13, 2025 Referring Physician Jay Reason for Consultation SVT History of Present Illness 29-year-old female with PMH for liver cirrhosis, ETOH abuse, presents to the hospital with abdominal pain. Patient was having increased swelling pain nausea and vomiting. Upon evaluation in the ER patient found to have elevated LFTs/transaminitis, hyperammonemia, jaundice. Patient was tachycardic heart rate in the 120s inpatient noted to go into SVT and was attempted chemically cardioverted with adenosine though did not as a, patient ended up having better controlled heart rate, patient ended up going to SVT again and was able to convert using Valsalva maneuvers Past Medical History As stated above Past Surgical History As stated above Family History: Patient reports no known family medical history. Family History Denies pertinent family cardiac history Social History Denies tobacco use, does endorse occasional marijuana use and continued on and off heavy alcohol use. Allergies: Coded Allergies: NO KNOWN ALLERGIES (Unverified , 02/09/25) Home Meds Reported Medications Diclofenac Sodium (Topical) (Aleve Arthritis Pain) 1 % Gel 02/10/25 Current Medications Current Medications Medications (Trade) Dose Ordered Sig/Sofia Route PRN Reason Start Time Stop Time Status Last Admin Aspirin (Ecotrin Enteric Coated Tablet) 81 mg DAILY PO 02/14/25 10:00 Review of Systems Constitutional: No: Fever, Chills, Sweats, Weakness, Malaise, Other Eyes: No: Pain, Vision change, Conjunctivae inflammation, Eyelid inflammation, Other, Redness ENT: No: Ear pain, Ear discharge, Nose pain, Nose discharge, Nose congestion, Mouth pain, Mouth swelling, Throat pain, Throat swelling, Other Respiratory: No: Cough, Dry, Shortness of breath, SOB with exertion, Wheezing, Hemoptysis, Pleuritic Pain, Sputum, Wheezing, Other Cardiovascular: ; No: Chest Pain Palpitations, Orthopnea, Paroxysmal Noc. Dyspnea, Edema, Lt Headedness, Other Gastrointestinal: No: Nausea, Vomiting, Abdominal Pain, Diarrhea, Constipation, Melena, Hematochezia, Other Genitourinary: No Dysuria, No Frequency, No Incontinence, No Hematuria, No Retention, No Other Musculoskeletal: neck pain; No: other, shoulder pain, arm pain, back pain, hand pain, leg pain, foot pain Skin: No: Rash, Lesions, Jaundice, Bruising, Other Neurological: Other (Dizziness, headache.); No: Weakness, Numbness, Incoordination, Change in speech, Confusion, Seizures Vital Signs Vital Signs Date Time Temp Pulse Resp B/P (MAP) Pulse Ox O2 Delivery O2 Flow Rate FiO2 02/13/25 13:00 99.4 99 17 125/74 (91) 98 99.4 02/13/25 08:00 Room Air* 0 21 Physical Exam General appearance: Ill-appearing, in no acute distress. HEENT: Exam shows: Normocephalic, atraumatic, PERRLA, EOMI Neck: Supple, no bruits Chest: Equal chest excursion bilaterally. Breath sounds normal-no rales or wheezes. Heart: Rhythm: Regular rate; no murmur or gallop Abdomen: Exam shows: Soft, nontender, distended Musculoskeletal: No clubbing, no cyanosis, no lower extremity edema Dermatology: Skin warm, moist. Neurological: Exam shows: Alert and oriented x4, normal speech Available prior records, labs, EKG, rhythm strips reviewed and interpreted Labs/Diagnostic Data Labs Test 02/13/25 05:08 02/13/25 05:05 02/12/25 15:38 02/10/25 15:29 Range/Units Sodium Level 136 136-145 mmol/L Potassium Level 4.0 3.5-5.1 mmol/L Chloride Level 104 98-107 mmol/L Carbon Dioxide Level 25 20-31 mmol/L Anion Gap 7 5-15 Blood Urea Nitrogen < 5 L 9-23 mg/dL Creatinine 0.53 L 0.550-1.02 mg/dL Glomerular Filtration Rate Calc 127 >90 mL/min BUN/Creatinine Ratio 9.4 L 10.0-20.0 Serum Glucose 100 74-106 mg/dL Calcium Level 9.0 8.7-10.4 mg/dL Total Bilirubin 3.8 H 0.2-1.0 mg/dL Aspartate Amino Transferase (AST) 173 H 13-40 U/L Alanine Aminotransferase (ALT) 74 H 7-40 U/L Alkaline Phosphatase 78 46-116 U/L Troponin I High Sensitivity 77 *H </=34 ng/L Total Protein 7.9 5.7-8.2 g/dL Albumin 3.4 3.2-4.8 g/dL B-Type Natriuretic Peptide 219.16 0-100 pg/mL Magnesium Level 1.6 1.6-2.6 mg/dL Prothrombin Time 15.3 H 9.3-11.8 sec Prothrombin Time INR 1.50 H 0.9-1.15 Activated Partial Thromboplast Time 33.5 24.5-34.5 SEC Iron Level 250 H 50-170 ug/dL Total Iron Binding Capacity 269 250-425 ug/dL Percent Iron Saturation 92.9 H 15-50 % Ferritin 235.3 10-291 ng/mL Direct Bilirubin 2.8 H <0.3 mg/dL Vitamin B12 Level 1006 H 211-911 pg/mL Vitamin D 25-Hydroxy 10.4 L 30.0-100 ng/mL Thyroid Stimulating Hormone (TSH) 0.67 0.55-4.78 uIU/mL Plasma/Serum Blood Alcohol < 3.0 <10 mg/dL Anti-Nuclear Antibody Screen Positive H Negative Hepatitis A IgM Antibody Negative Hepatitis A Antibody Total Positive H Negative Hepatitis B Surface Antigen Negative Negative Hepatitis B Surface Antibody Positive H Negative Hepatitis B Core Total Antibody Negative Negative Hepatitis B Core IgM Antibody Negative Negative Hepatitis C Antibody Negative Negative Test 02/10/25 01:22 02/09/25 23:40 Range/Units Ammonia 42 H 11-32 umol/L White Blood Count 8.6 4.4-10.8 10^3/uL Red Blood Count 3.23 L 4.0-5.20 10^6/uL Hemoglobin 10.8 L 12.2-16.2 g/dL Hematocrit 30.7 L 36.0-46.0 % Mean Corpuscular Volume 95.2 80.0-100.0 fL Mean Corpuscular Hemoglobin 33.4 H 28.0-32.0 pg Mean Corpuscular Hemoglobin Concent 35.0 32.0-36.0 g/dL Red Cell Distribution Width 14.6 H 11.8-14.3 % Platelet Count 80 L 140-450 10^3/uL Mean Platelet Volume 7.3 6.9-10.8 fL Neutrophils (%) (Auto) 85.7 H 37.0-80.0 % Lymphocytes (%) (Auto) 9.4 L 10.0-50.0 % Monocytes (%) (Auto) 3.1 0.0-12.0 % Eosinophils (%) (Auto) 0.3 0.0-7.0 % Basophils (%) (Auto) 1.5 0.0-2.0 % Neutrophils # (Auto) 7.4 1.6-8.6 10 ^3/uL Lymphocytes # (Auto) 0.8 0.4-5.4 10 ^3/uL Monocytes # (Auto) 0.3 0-1.3 10 ^3/uL Eosinophils # (Auto) 0 0-0.8 10 ^3/uL Basophils # (Auto) 0.1 0-0.2 10 ^3/uL Nucleated Red Blood Cells 0.2 % Lipase 33 12-53 U/L Assessment * Supraventricular tachycardia - resolved with Valsalva maneuvers. Continue telemetry monitoring. Monitor and replace electrolytes keep K greater than 4 Mag greater than 2. Follow up echocardiogram. * Liver cirrhosis/ETOH abuse - elevated LFTs. Patient has jaundice. GI on board. * Acute abdomen - CT showing hepatosplenomegaly, cholelithiasis. Management per primary team. Case Discussed with Dr Lopez. Continue telemetry monitoring, monitoring replace electrolytes. Low-dose metoprolol if BP tolerates. Follow up echocardiogram showing normal LVEF 65%, no significant valvular structural abnormalities. Patient had positive bubble study suggestive of possible be a full may consider REYNALDO for evaluation if clinically correlated. Critical care, time spent: 41 minutes This medical document was created using an electronic medical record system with voice recognition software and computerized dictation system. Although this document has been carefully reviewed, there might still be some phonetic and typographical errors. Occasional wrong-word or ``sound-alike substitutions may have occurred due to the inherent limitations of voice recognition software. These areas are purely typographical due to imperfections of the software programs and do not reflect any compromise in the patient's medical care. Please read the chart carefully and recognize, using context, where these substitutions have occurred. Thank you for allowing me to participate in the management of this patient. The treatment plan was discussed with and agreed upon by patient/family including requesting consultants and ordering of imaging/procedures. Plan discussed with: Patient NYHA Physical activity limitations: Class2(Slight)fatigue,sob Date of Service: Feb 13, 2025 Billing Provider: ADRIANNA CRUZ Cardiology Common Codes: [id number] INP/OBS CARE (High), [id number] CARE 30-74 MIN ADRIANNA CRUZ Feb 13, 2025 16:15
--- NOTE | 2025-02-13 22:22 | DVHPN2 ---
Progress Note - Dictate Date Seen: Feb 13, 2025 Medical Necessity Reason Pt with a Central, PICC or Fol: No Subjective 29-year-old female with PMH for liver cirrhosis, ETOH abuse, presents to the hospital with abdominal pain. Patient was having increased swelling pain nausea and vomiting. Upon evaluation in the ER patient found to have elevated LFTs/transaminitis, hyperammonemia, jaundice. Patient had SVT that was chemically cardioverted with adenosine and subsequently with Valsalva maneuvers Echocardiogram shows ejection fraction of 65%, patient has mild elevation in troponins Patient was seen at bedside this morning, she was resting comfortably Liver enzymes are trending down FRANK was positive and patient was also started on steroids vital signs Vital Sign Date Time Temp Pulse Resp B/P (MAP) Pulse Ox O2 Delivery O2 Flow Rate FiO2 02/13/25 21:00 98.1 100 18 121/66 (84) 99 98.1 02/13/25 08:00 Room Air* 0 21 Total Intake and Output 02/12/25 02/12/25 02/13/25 15:00 23:00 07:00 Intake Total 2280 ml 1655 ml Balance 2280 ml 1655 ml medications Current Medications Medications Dose Ordered Sig/Sofia Route Start Time Stop Time Status Last Admin Dose Admin Tramadol HCl 50 mg Q4HP PRN PO 02/10/25 01:15 02/13/25 18:49 50 MG Ondansetron HCl 4 mg Q4HP PRN IV 02/10/25 01:15 Chlordiazepoxide HCl 25 mg Q6HPRN PRN PO 02/10/25 01:15 02/13/25 16:57 25 MG Folic Acid 1 mg DAILY PO 02/10/25 10:00 02/13/25 08:49 1 MG Thiamine HCl 100 mg DAILY PO 02/10/25 10:00 02/13/25 08:49 100 MG Lactulose 30 ml DAILY PO 02/10/25 10:00 02/13/25 08:49 30 ML Sodium Chloride 1,000 ml @ 125 mls/hr Q8H IV 02/10/25 10:45 02/13/25 18:34 125 MLS/HR Morphine Sulfate 2 mg Q8HPRN PRN IV 02/10/25 12:45 02/10/25 13:11 2 MG Pantoprazole Sodium 40 mg BID IV 02/10/25 22:00 02/13/25 08:48 40 MG Sucralfate 1 gm BID@0600,2200 PO 02/10/25 22:00 02/13/25 05:20 1 GM Prednisone 40 mg DAILY PO 02/12/25 10:00 02/13/25 08:50 40 MG Ursodiol 300 mg BID PO 02/11/25 12:00 02/17/25 23:33 02/13/25 08:50 300 MG Aspirin 81 mg DAILY PO 02/14/25 10:00 objective General: Well-built, afebrile, palor, mucosae are moist Cardiovascular: Tachycardic but Regular S1 and S2. No murmurs, gallops or rubs. No JVD elevation. No pedal edema Respiratory: Normal B/L air entry on room air. Clear lung sounds on auscultation Abdomen: Soft, nontender, nondistended, normoactive bowel sounds, no rebound tenderness, no organomegaly, no masses Genitourinary: Deferred MSK/skin: Mobilizes 4 limbs. Skin is dry and warm Neurological: No motor, no sensitive deficits, normal speech. Pupils are isocoric and reactive. laboratory and microbiology Laboratory Tests 02/13/25 05:08 02/09/25 23:40 Test 02/13/25 05:08 Range/Units Serum Glucose 100 74-106 mg/dL Problems(with codes): (1) Hyperbilirubinemia (2) Cholelithiasis (3) Intractable abdominal pain (4) Positive FRANK (antinuclear antibody) (5) Elevated liver enzymes Prognosis Plan[facility]8 [facility]. Continue prednisolone 40 mg daily p.o. 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 FRANK positive, follow up with the antimitochondrial, anti-smooth muscle antibody Ursodiol b.i.d. for 7 days Continue monitoring for withdrawal, telemetry monitoring, monitor electrolytes. Patient recently had EGD at [facility] which showed esophageal varices and patient underwent banding Liver ultrasound shows cholelithiasis. Hepatomegaly. Hepatitis panel negative Ativan PRN, Librium scheduled Supplement thiamine folic acid Pantoprazole 40 mg IV b.i.d. Advanced diet as tolerated. IV fluids Plan discussed with: Patient, Other (Dr Lund) JOEY MOORE MD Feb 13, 2025 22:22
[2025-02-14] VITALS (8 sets, daily range): BP systolic 107–129; BP diastolic 62–73; PULSE 80–102; RESP 16–18; TEMP 98–98.3; O2SAT 95–99
[2025-02-14] MEDS: ASPirin-EC 81 mg tab PO SCH (08:56)
--- NOTE | 2025-02-14 12:38 | DVHPN2 ---
Consult Progress Note Subjective Patient reports: No new complaints Objective vital signs Vital Sign Date Time Temp Pulse Resp B/P (MAP) Pulse Ox O2 Delivery O2 Flow Rate FiO2 02/14/25 09:27 104 18 123/71 02/14/25 09:00 98.2 96 98.2 02/14/25 08:00 Room Air* 0 21 Total Intake and Output 02/13/25 02/13/25 02/14/25 14:59 22:59 06:59 Intake Total 125 ml 800 ml 500 ml Balance 125 ml 800 ml 500 ml medications Current Medications Medications Dose Ordered Sig/Sofia Route Start Time Stop Time Status Last Admin Dose Admin Tramadol HCl 50 mg Q4HP PRN PO 02/10/25 01:15 02/14/25 05:49 50 MG Ondansetron HCl 4 mg Q4HP PRN IV 02/10/25 01:15 Chlordiazepoxide HCl 25 mg Q6HPRN PRN PO 02/10/25 01:15 02/14/25 12:00 25 MG Folic Acid 1 mg DAILY PO 02/10/25 10:00 02/14/25 08:56 1 MG Thiamine HCl 100 mg DAILY PO 02/10/25 10:00 02/14/25 08:56 100 MG Lactulose 30 ml DAILY PO 02/10/25 10:00 02/14/25 08:56 30 ML Sodium Chloride 1,000 ml @ 125 mls/hr Q8H IV 02/10/25 10:45 02/13/25 18:34 125 MLS/HR Morphine Sulfate 2 mg Q8HPRN PRN IV 02/10/25 12:45 02/14/25 08:57 2 MG Pantoprazole Sodium 40 mg BID IV 02/10/25 22:00 02/14/25 08:56 40 MG Sucralfate 1 gm BID@0600,2200 PO 02/10/25 22:00 02/14/25 05:49 1 GM Prednisone 40 mg DAILY PO 02/12/25 10:00 02/14/25 08:56 40 MG Ursodiol 300 mg BID PO 02/11/25 12:00 02/17/25 23:33 02/14/25 08:56 300 MG Aspirin 81 mg DAILY PO 02/14/25 10:00 02/14/25 08:56 81 MG Examination: CVS:Normal (Telemetry reviewed consistent with sinus rhythm at 99 beats per minute) laboratory and microbiology Laboratory Tests 02/13/25 05:08 02/09/25 23:40 Test 02/13/25 05:08 Range/Units Serum Glucose 100 74-106 mg/dL Problem List/Assessment/Plan Problem List/Assessment/Plan * Supraventricular tachycardia - resolved with Valsalva maneuvers. Continue telemetry monitoring. Monitor and replace electrolytes keep K greater than 4 Mag greater than 2. Follow up echocardiogram with EF 65%, normal LV motion no significant valvular structural abnormalities however patient noted to have possible PFO with positive bubble study, may consider REYNALDO for further evaluation if clinically correlated. Patient with episodes of marginal BP. Will hold off on any AV mirta agents at this time. * Liver cirrhosis/ETOH abuse - elevated LFTs. Patient has jaundice. GI on board. * Acute abdomen - CT showing hepatosplenomegaly, cholelithiasis. Management per primary team. Case Discussed with Dr Lopez. Continue telemetry monitoring, monitoring replace electrolytes. Low-dose metoprolol if BP tolerates. Follow up echocardiogram showing normal LVEF 65%, no significant valvular structural abnormalities. Patient had positive bubble study suggestive of possible PFO, may consider REYNALDO for evaluation if clinically correlated. Critical care, time spent: 35 minutes This medical document was created using an electronic medical record system with voice recognition software and computerized dictation system. Although this document has been carefully reviewed, there might still be some phonetic and typographical errors. Occasional wrong-word or ``sound-alike substitutions may have occurred due to the inherent limitations of voice recognition software. These areas are purely typographical due to imperfections of the software programs and do not reflect any compromise in the patient's medical care. Please read the chart carefully and recognize, using context, where these substitutions have occurred. Thank you for allowing me to participate in the management of this patient. The treatment plan was discussed with and agreed upon by patient/family including requesting consultants and ordering of imaging/procedures. Plan discussed with: Patient Date of Service: Feb 14, 2025 Billing Provider: ADRIANNA CRUZ Common Visit Codes: [id number] INP/OBS CARE(HIGH), [id number] CARE 30-74 MIN ADRIANNA CRUZ Feb 14, 2025 12:38
--- NOTE | 2025-02-14 14:33 | DVHPN2 ---
Subjective feeling well with no tremors Reviewed: H&P Changes from previous H/P or p: No Changes Objective Vitals Vital Signs Date Time Temp Pulse Resp B/P (MAP) Pulse Ox O2 Delivery O2 Flow Rate FiO2 02/14/25 13:00 98.1 102 16 129/71 (90) 99 98.1 02/14/25 08:00 Room Air* 0 21 Intake/Output Intake and Output 02/14/25 05:00 Intake Total 1425 ml Balance 1425 ml Intake Oral 1300 ml IV Total 125 ml # Voids 7 # Bowel Movements 2 General Appearance: Alert, Oriented X3 HEENT: Atraumatic Cardiovascular: Regular rate, Normal S1, Normal S2 Abdomen: Normal bowel sounds Medications Current Medications Medications Dose Ordered Sig/Sofia Route Start Time Stop Time Status Last Admin Dose Admin Tramadol HCl 50 mg Q4HP PRN PO 02/10/25 01:15 02/14/25 05:49 50 MG Ondansetron HCl 4 mg Q4HP PRN IV 02/10/25 01:15 Chlordiazepoxide HCl 25 mg Q6HPRN PRN PO 02/10/25 01:15 02/14/25 12:00 25 MG Folic Acid 1 mg DAILY PO 02/10/25 10:00 02/14/25 08:56 1 MG Thiamine HCl 100 mg DAILY PO 02/10/25 10:00 02/14/25 08:56 100 MG Lactulose 30 ml DAILY PO 02/10/25 10:00 02/14/25 08:56 30 ML Sodium Chloride 1,000 ml @ 125 mls/hr Q8H IV 02/10/25 10:45 02/13/25 18:34 125 MLS/HR Morphine Sulfate 2 mg Q8HPRN PRN IV 02/10/25 12:45 02/14/25 08:57 2 MG Pantoprazole Sodium 40 mg BID IV 02/10/25 22:00 02/14/25 08:56 40 MG Sucralfate 1 gm BID@0600,2200 PO 02/10/25 22:00 02/14/25 05:49 1 GM Prednisone 40 mg DAILY PO 02/12/25 10:00 02/14/25 08:56 40 MG Ursodiol 300 mg BID PO 02/11/25 12:00 02/17/25 23:33 02/14/25 08:56 300 MG Aspirin 81 mg DAILY PO 02/14/25 10:00 02/14/25 08:56 81 MG Laboratory Results Laboratory Tests 02/09/25 23:40 02/13/25 05:08 Assessment/Plan Assessment/Plan Acute abdominal pain Liver cirrhosis Jaundice Transaminitis Alcohol abuse Hyperammonemia SVT Monitor LFts monitor for withdrawal lactulose GI consulted>prednisone PPI BID Cardiology recommended low dose metoprolol Dispo: DC tomorrow if continues to get better Plan discussed with: Patient Date of Service: Feb 14, 2025 Billing Provider: RADHA MYLES MD Common Visit Codes: [id number] INP/OBS CARE(HIGH) RADHA MYLES MD Feb 14, 2025 14:33
[2025-02-14] MEDS: METOPROLOL SUCCINATE XL 50 MG TAB PO SCH (14:52)
--- NOTE | 2025-02-14 15:57 | DVHPN2 ---
Progress Note Date Seen: Feb 14, 2025 Resident Creating Document: ALEXIS MOJICA RESIDENT Medical Necessity Reason Pt with a Central, PICC or Fol: No Subjective Review of Systems 29-year-old female presented to ER with a chief complaint of intractable nausea and vomiting and abdominal pain starting Thanksgiving. Patient reports that she had 2 cups of Tequila on Thanksgiving following which she has been experiencing abdominal crampy pain, nausea and vomiting, nonbloody, unable to keep anything down, and therefore she decided to the ER. Patient was recently seen in [facility] for similar reasons after a binge drinking episode where she had upper endoscopy which showed esophageal varices and she required banding for the patient. Patient was visiting cousin on in [place] Past medical history: Chronic alcoholism, likely esophageal varices status post banding, chronic back pain Social history: Lost her house in [place] in 2024, started drinking heavily, smokes marijuana 02/10-Patient seen and examined. Abdomen nontender, normoactive. Tachycardic sinus. 02/11 patient seen and examined. Reports feeling better. FRANK positive. 02/12-patient seen and examined. Denies abdominal pain, constipation or diarrhea. Diet advanced to full liquid l 02/14-denies acute complaint. Diet advanced to soft. Objective vital signs Vital Sign Date Time Temp Pulse Resp B/P (MAP) Pulse Ox O2 Delivery O2 Flow Rate FiO2 02/14/25 14:52 91 124/67 02/14/25 13:00 98.1 16 99 98.1 02/14/25 08:00 Room Air* 0 21 Total Intake and Output 02/13/25 02/13/25 02/14/25 15:00 23:00 07:00 Intake Total 125 ml 800 ml 500 ml Balance 125 ml 800 ml 500 ml medications Current Medications Medications Dose Ordered Sig/Sofia Route Start Time Stop Time Status Last Admin Dose Admin Tramadol HCl 50 mg Q4HP PRN PO 02/10/25 01:15 02/14/25 05:49 50 MG Ondansetron HCl 4 mg Q4HP PRN IV 02/10/25 01:15 Chlordiazepoxide HCl 25 mg Q6HPRN PRN PO 02/10/25 01:15 02/14/25 12:00 25 MG Folic Acid 1 mg DAILY PO 02/10/25 10:00 02/14/25 08:56 1 MG Thiamine HCl 100 mg DAILY PO 02/10/25 10:00 02/14/25 08:56 100 MG Lactulose 30 ml DAILY PO 02/10/25 10:00 02/14/25 08:56 30 ML Sodium Chloride 1,000 ml @ 125 mls/hr Q8H IV 02/10/25 10:45 02/14/25 14:51 125 MLS/HR Morphine Sulfate 2 mg Q8HPRN PRN IV 02/10/25 12:45 02/14/25 08:57 2 MG Pantoprazole Sodium 40 mg BID IV 02/10/25 22:00 02/14/25 08:56 40 MG Sucralfate 1 gm BID@0600,2200 PO 02/10/25 22:00 02/14/25 05:49 1 GM Prednisone 40 mg DAILY PO 02/12/25 10:00 02/14/25 08:56 40 MG Ursodiol 300 mg BID PO 02/11/25 12:00 02/17/25 23:33 02/14/25 08:56 300 MG Aspirin 81 mg DAILY PO 02/14/25 10:00 02/14/25 08:56 81 MG Metoprolol Succinate 25 mg DAILY PO 02/14/25 14:45 02/14/25 14:52 25 MG Examination Patient lying in bed, in no acute distress General: Well-built, afebrile, palor, mucosae are moist Cardiovascular: Tachycardic but Regular S1 and S2. No murmurs, gallops or rubs. No JVD elevation. No pedal edema Respiratory: Normal B/L air entry on room air. Clear lung sounds on auscultation Abdomen: Soft, nontender, nondistended, normoactive bowel sounds, no rebound tenderness, no organomegaly, no masses Genitourinary: Deferred MSK/skin: Mobilizes 4 limbs. Skin is dry and warm Neurological: No motor, no sensitive deficits, normal speech. Pupils are isocoric and reactive. Psych/Mental Status: A/Ox3 laboratory and microbiology Laboratory Tests 02/13/25 05:08 02/09/25 23:40 Test 02/13/25 05:08 Range/Units Serum Glucose 100 74-106 mg/dL Labs and/or images reviewed: Labs reviewed by me, Image(s) reviewed by me Problem List/Assessment/Plan Problem List/Assessment/Plan Acute alcoholic intoxication Alcoholic hepatitis-meld score 18 FRANK positive questionable autoimmune hepatitis History of esophageal varices status post banding Anemia likely mixed, macrocytic and microcytic Transaminitis SVT status post adenosine NSTEMI Plan: Recommendation Diet advanced to soft. Monitor CBC CMP tomorrow. Cole discriminant function 25.8 points-good prognosis. Continue prednisolone 40 mg daily p.o. starting 02/11, she'd require prednisone at discharge Patient likely has autoimmune hepatitis and would benefit from liver biopsy. FRANK positive, follow up with the antimitochondrial, anti-smooth muscle antibody Ursodiol b.i.d. for 7 days Continue monitoring for withdrawal, telemetry monitoring, monitor electrolytes. Patient recently had EGD at [facility] which showed esophageal varices and patient underwent banding Liver ultrasound shows cholelithiasis. Hepatomegaly. Follow up with hepatitis panel. Ativan PRN, Librium scheduled Supplement thiamine folic acid Pantoprazole 40 mg IV b.i.d. Advanced diet as tolerated. IV fluids Plan discussed with patient in which all questions have been answered Case discussed with Dr. Noova Plan discussed with: Patient My Orders My Orders Orders - ALEXIS MOJICA Procedure Category Date Status Time Mechanical Soft Diet DIET 02/14/25 Transmitted Dinner ALEXIS MOJICA Feb 14, 2025 15:57
[2025-02-15 01:00] VITALS: BP 111/64; PULSE 85; RESP 18; TEMP 97.8; O2SAT 98
[2025-02-15 05:00] VITALS: BP 104/64; PULSE 80; RESP 18; TEMP 97.8; O2SAT 98
[2025-02-15 07:12] LABS: INR 1.57 (0.9-1.15); Partial Thromboplastin Time 30.5 SEC (24.5-34.5); Prothrombin Time 15.9 sec (9.3-11.8)
[2025-02-15 07:15] LABS: Hematocrit 28.8 % (36.0-46.0); Hemoglobin 10.1 g/dL (12.2-16.2); Mean Corpuscular Hemoglobin 33.2 pg (28.0-32.0); Mean Corpuscular Volume 95.1 fL (80.0-100.0); Nucleated Red Blood Cells % 0.1 %
[2025-02-15 07:24] LABS: Albumin 3.4 g/dL (3.2-4.8); Alkaline Phosphatase 96 U/L (46-116); Anion Gap 7 (5-15); Calcium 9.1 mg/dL (8.7-10.4); Carbon Dioxide 30 mmol/L (20-31); Chloride 102 mmol/L (98-107); Glucose 77 mg/dL (74-106); Magnesium 1.6 mg/dL (1.6-2.6); Potassium 3.9 mmol/L (3.5-5.1); Sodium 139 mmol/L (136-145); Total Protein 7.9 g/dL (5.7-8.2)
[2025-02-15 07:25] LABS: Alanine Aminotransferase 93 U/L (7-40); BUN/Creatinine Ratio 9.4 (10.0-20.0); Blood Urea Nitrogen < 5 mg/dL (9-23)
[2025-02-15 07:26] LABS: Bilirubin, Total 3.0 mg/dL (0.2-1.0)
[2025-02-15 08:00] VITALS: PULSE 73
[2025-02-15 09:04] VITALS: BP 109/70; PULSE 77; RESP 16; TEMP 97.9; O2SAT 98
--- NOTE | 2025-02-15 10:37 | DVHPN2 ---
Consult Progress Note Date Seen: Feb 15, 2025 Subjective Review of Systems: CVS:Normal, RESPIRATORY:Normal, NEURO:Normal Other Systems: Denies any cardiac symptoms Objective vital signs Vital Sign Date Time Temp Pulse Resp B/P (MAP) Pulse Ox O2 Delivery O2 Flow Rate FiO2 02/15/25 09:04 97.9 77 16 109/70 (83) 98 97.9 02/15/25 08:00 Room Air* 0 21 Total Intake and Output 02/14/25 02/14/25 02/15/25 15:00 23:00 07:00 Intake Total 1000 ml 2060 ml 950 ml Balance 1000 ml 2060 ml 950 ml medications Current Medications Medications Dose Ordered Sig/Sofia Route Start Time Stop Time Status Last Admin Dose Admin Tramadol HCl 50 mg Q4HP PRN PO 02/10/25 01:15 02/15/25 08:49 50 MG Ondansetron HCl 4 mg Q4HP PRN IV 02/10/25 01:15 Chlordiazepoxide HCl 25 mg Q6HPRN PRN PO 02/10/25 01:15 02/14/25 22:33 25 MG Folic Acid 1 mg DAILY PO 02/10/25 10:00 02/15/25 08:49 1 MG Thiamine HCl 100 mg DAILY PO 02/10/25 10:00 02/15/25 08:49 100 MG Lactulose 30 ml DAILY PO 02/10/25 10:00 02/15/25 08:48 30 ML Sodium Chloride 1,000 ml @ 125 mls/hr Q8H IV 02/10/25 10:45 02/14/25 14:51 125 MLS/HR Morphine Sulfate 2 mg Q8HPRN PRN IV 02/10/25 12:45 02/14/25 21:15 2 MG Pantoprazole Sodium 40 mg BID IV 02/10/25 22:00 02/15/25 08:48 40 MG Sucralfate 1 gm BID@0600,2200 PO 02/10/25 22:00 02/15/25 06:11 1 GM Prednisone 40 mg DAILY PO 02/12/25 10:00 02/15/25 08:49 40 MG Ursodiol 300 mg BID PO 02/11/25 12:00 02/17/25 23:33 02/15/25 08:49 300 MG Aspirin 81 mg DAILY PO 02/14/25 10:00 12/8/25 08:49 81 MG Metoprolol Succinate 25 mg DAILY PO 02/14/25 14:45 02/15/25 08:49 25 MG Examination: LUNGS:Normal, CVS:Normal, NEURO:Normal laboratory and microbiology Laboratory Tests 02/15/25 06:28 Test 02/15/25 06:28 Range/Units Serum Glucose 77 74-106 mg/dL Problem List/Assessment/Plan Problem List/Assessment/Plan (Dr. Lopez) * Supraventricular tachycardia - resolved with Valsalva maneuvers. Continue beta-marli. Overnight monitoring specialist revealed a sinus rhythm with no further tachyarrhythmias. Monitor and replace electrolytes keep K greater than 4 Mag greater than 2. Follow up echocardiogram with EF 65%, normal LV motion no significant valvular structural abnormalities however patient noted to have possible PFO with positive bubble study, may consider REYNALDO for further evaluation if clinically correlated. Incidental finding. The patient presents with lack of neurological issues, this can be followed up as outpatient as well as an event monitor. * Liver cirrhosis/ETOH abuse - elevated LFTs. Patient has jaundice. GI on board. * Acute abdomen - CT showing hepatosplenomegaly, cholelithiasis. Management per primary team. Provider report received from YOVANI Bobby. There is no further cardiac work-up indicated at this time. Kindly call with any questions or concerns. Thank you for allowing me to participate in the management of this patient. This medical document was created using an electronic medical record system with voice recognition software and computerized dictation system. Although this document has been carefully reviewed, there might still be some phonetic and typographical errors. Occasional wrong-word or ``sound-alike substitutions may have occurred due to the inherent limitations of voice recognition software. These areas are purely typographical due to imperfections of the software programs and do not reflect any compromise in the patient's medical care. Please read the chart carefully and recognize, using context, where these substitutions have occurred. Plan discussed with: Patient, Other Date of Service: Feb 15, 2025 Billing Provider: LUISA JAIMES Cardiology Common Codes: [id number] INP/OBS CARE(Mod) LUISA JAIMES Feb 15, 2025 10:37
[2025-02-15] MEDS: MAGNESIUM SULFATE 1GM/100ML 100 ML IV ONE (11:19)
[2025-02-15 13:00] VITALS: BP 111/66; PULSE 87; RESP 17; TEMP 98.3; O2SAT 97
[2025-02-15] MEDS ORDERED: PRED20TA2 PO (13:18)
[2025-02-15] MEDS ORDERED: METO-6 PO (13:18)
[2025-02-15 14:01] VITALS: BP 117/68; PULSE 93
--- NOTE | 2025-02-15 15:04 | DVHPN2 ---
Progress Note Date Seen: Feb 15, 2025 Resident Creating Document: ALEXIS MOJICA RESIDENT Medical Necessity Reason Pt with a Central, PICC or Fol: No Subjective Review of Systems 29-year-old female presented to ER with a chief complaint of intractable nausea and vomiting and abdominal pain starting Thanksgiving. Patient reports that she had 2 cups of Tequila on Thanksgi following which she has been experiencing abdominal crampy pain, nausea and vomiting, nonbloody, unable to keep anything down, and therefore she decided to the ER. Patient was recently seen in [facility] for similar reasons after a binge drinking episode where she had upper endoscopy which showed esophageal varices and she required banding for the patient. Patient was visiting cousin on in [place] Past medical history: Chronic alcoholism, likely esophageal varices status post banding, chronic back pain Social history: Lost her house in [place] in 2024, started drinking heavily, smokes marijuana 02/10-Patient seen and examined. Abdomen nontender, normoactive. Tachycardic sinus. 02/11 patient seen and examined. Reports feeling better. FRANK positive. 02/12-patient seen and examined. Denies abdominal pain, constipation or diarrhea. Diet advanced to full liquid l 02/14-denies acute complaint. Diet advanced to soft. 02/15-patient seen and examined. Tolerating diet, no abdominal symptoms. Objective vital signs Vital Sign Date Time Temp Pulse Resp B/P (MAP) Pulse Ox O2 Delivery O2 Flow Rate FiO2 02/15/25 14:01 93 02/15/25 13:00 98.3 17 111/66 (81) 97 98.3 02/15/25 08:00 Room Air* 0 21 Total Intake and Output 02/14/25 02/14/25 02/15/25 15:00 23:00 07:00 Intake Total 1000 ml 2060 ml 950 ml Balance 1000 ml 2060 ml 950 ml medications Current Medications Medications Dose Ordered Sig/Sofia Route Start Time Stop Time Status Last Admin Dose Admin Tramadol HCl 50 mg Q4HP PRN PO 02/10/25 01:15 02/15/25 08:49 50 MG Ondansetron HCl 4 mg Q4HP PRN IV 02/10/25 01:15 Chlordiazepoxide HCl 25 mg Q6HPRN PRN PO 02/10/25 01:15 02/14/25 22:33 25 MG Folic Acid 1 mg DAILY PO 02/10/25 10:00 02/15/25 08:49 1 MG Thiamine HCl 100 mg DAILY PO 02/10/25 10:00 02/15/25 08:49 100 MG Lactulose 30 ml DAILY PO 02/10/25 10:00 02/15/25 08:48 30 ML Sodium Chloride 1,000 ml @ 125 mls/hr Q8H IV 02/10/25 10:45 02/14/25 14:51 125 MLS/HR Morphine Sulfate 2 mg Q8HPRN PRN IV 02/10/25 12:45 02/14/25 21:15 2 MG Pantoprazole Sodium 40 mg BID IV 02/10/25 22:00 02/15/25 08:48 40 MG Sucralfate 1 gm BID@0600,2200 PO 02/10/25 22:00 02/15/25 06:11 1 GM Prednisone 40 mg DAILY PO 02/12/25 10:00 02/15/25 08:49 40 MG Ursodiol 300 mg BID PO 02/11/25 12:00 02/17/25 23:33 02/15/25 08:49 300 MG Aspirin 81 mg DAILY PO 02/14/25 10:00 02/15/25 08:49 81 MG Metoprolol Succinate 25 mg DAILY PO 02/14/25 14:45 02/15/25 08:49 25 MG Examination Patient lying in bed, in no acute distress General: Well-built, afebrile, palor, mucosae are moist Cardiovascular: Tachycardic but Regular S1 and S2. No murmurs, gallops or rubs. No JVD elevation. No pedal edema Respiratory: Normal B/L air entry on room air. Clear lung sounds on auscultation Abdomen: Soft, nontender, nondistended, normoactive bowel sounds, no rebound tenderness, no organomegaly, no masses Genitourinary: Deferred MSK/skin: Mobilizes 4 limbs. Skin is dry and warm Neurological: No motor, no sensitive deficits, normal speech. Pupils are isocoric and reactive. Psych/Mental Status: A/Ox3 laboratory and microbiology Laboratory Tests 02/15/25 06:28 Test 02/15/25 06:28 Range/Units Serum Glucose 77 74-106 mg/dL Labs and/or images reviewed: Labs reviewed by me, Image(s) reviewed by me Problem List/Assessment/Plan Problem List/Assessment/Plan Acute alcoholic intoxication Alcoholic hepatitis-meld score 18 FRANK positive questionable autoimmune hepatitis History of esophageal varices status post banding Anemia likely mixed, macrocytic and microcytic Transaminitis SVT status post adenosine NSTEMI Plan: Recommendation Stable to be discharged per GI point of view. Continue prednisolone 40 mg daily for 7 days on discharge. Followed by a Medrol Dosepak for 1 week. Outpatient liver biopsy advised. Follow up with GI within 2-4 weeks. Continue Protonix 40 mg daily. Diet advanced to soft. Monitor CBC CMP tomorrow. [facility] discriminant function 25.8 points-good prognosis. Continue prednisolone 40 mg daily p.o. starting 02/11, she'd require prednisone at discharge Patient likely has autoimmune hepatitis and would benefit from liver biopsy. FRANK positive, follow up with the antimitochondrial, anti-smooth muscle antibody Ursodiol b.i.d. for 7 days Continue monitoring for withdrawal, telemetry monitoring, monitor electrolytes. Patient recently had EGD at [facility] which showed esophageal varices and patient underwent banding Liver ultrasound shows cholelithiasis. Hepatomegaly. Follow up with hepatitis panel. Ativan PRN, Librium scheduled Supplement thiamine folic acid Pantoprazole 40 mg IV b.i.d. Advanced diet as tolerated. IV fluids Plan discussed with patient in which all questions have been answered Case discussed with Dr. Novoa Plan discussed with: Patient My Orders My Orders Orders - ALEXIS MOJICA Procedure Category Date Status Time Mechanical Soft Diet DIET 02/15/25 Transmitted Lunch ALEXIS MOJICA Feb 15, 2025 15:03
[2025-02-15] MEDS ORDERED: METH4PAK PO (15:05)
[2025-02-15] MEDS ORDERED: PANT40T PO (15:05)
--- NOTE | 2025-02-15 15:43 | DVHDS2 ---
Discharge Summary Date of Admission Feb 10, 2025 at 01:05 Date of Discharge: Feb 15, 2025 Labs/Diagnostic Data: Laboratory Results Test 02/15/25 06:28 02/13/25 05:08 02/13/25 05:05 02/10/25 15:29 White Blood Count 4.4 10^3/uL (4.4-10.8) Red Blood Count 3.03 10^6/uL (4.0-5.20) Hemoglobin 10.1 g/dL (12.2-16.2) Hematocrit 28.8 % (36.0-46.0) Mean Corpuscular Volume 95.1 fL (80.0-100.0) Mean Corpuscular Hemoglobin 33.2 pg (28.0-32.0) Mean Corpuscular Hemoglobin Concent 34.9 g/dL (32.0-36.0) Red Cell Distribution Width 14.8 % (11.8-14.3) Platelet Count 96 10^3/uL (140-450) Mean Platelet Volume 7.4 fL (6.9-10.8) Neutrophils (%) (Auto) 76.1 % (37.0-80.0) Lymphocytes (%) (Auto) 15.3 % (10.0-50.0) Monocytes (%) (Auto) 6.6 % (0.0-12.0) Eosinophils (%) (Auto) 1.9 % (0.0-7.0) Basophils (%) (Auto) 0.1 % (0.0-2.0) Neutrophils # (Auto) 3.3 10 ^3/uL (1.6-8.6) Lymphocytes # (Auto) 0.7 10 ^3/uL (0.4-5.4) Monocytes # (Auto) 0.3 10 ^3/uL (0-1.3) Eosinophils # (Auto) 0.1 10 ^3/uL (0-0.8) Basophils # (Auto) 0 10 ^3/uL (0-0.2) Nucleated Red Blood Cells 0.1 % Prothrombin Time 15.9 sec (9.3-11.8) Prothrombin Time INR 1.57 (0.9-1.15) Activated Partial Thromboplast Time 30.5 SEC (24.5-34.5) Sodium Level 139 mmol/L (136-145) Potassium Level 3.9 mmol/L (3.5-5.1) Chloride Level 102 mmol/L (98-107) Carbon Dioxide Level 30 mmol/L (20-31) Anion Gap 7 (5-15) Blood Urea Nitrogen < 5 mg/dL (9-23) Creatinine 0.53 mg/dL (0.550-1.02) Glomerular Filtration Rate Calc 127 mL/min (>90) BUN/Creatinine Ratio 9.4 (10.0-20.0) Serum Glucose 77 mg/dL (74-106) Calcium Level 9.1 mg/dL (8.7-10.4) Magnesium Level 1.6 mg/dL (1.6-2.6) Total Bilirubin 3.0 mg/dL (0.2-1.0) Aspartate Amino Transferase (AST) 167 U/L (13-40) Alanine Aminotransferase (ALT) 93 U/L (7-40) Alkaline Phosphatase 96 U/L (46-116) Ammonia < 10 umol/L (11-32) Total Protein 7.9 g/dL (5.7-8.2) Albumin 3.4 g/dL (3.2-4.8) Troponin I High Sensitivity 77 ng/L (</=34) B-Type Natriuretic Peptide 219.16 pg/mL (0-100) Iron Level 250 ug/dL (50-170) Total Iron Binding Capacity 269 ug/dL (250-425) Percent Iron Saturation 92.9 % (15-50) Ferritin 235.3 ng/mL (10-291) Direct Bilirubin 2.8 mg/dL (<0.3) Vitamin B12 Level 1006 pg/mL (211-911) Vitamin D 25-Hydroxy 10.4 ng/mL (30.0-100) Thyroid Stimulating Hormone (TSH) 0.67 uIU/mL (0.55-4.78) Plasma/Serum Blood Alcohol < 3.0 mg/dL (<10) Anti-Nuclear Antibody Screen Positive (Negative) Hepatitis A IgM Antibody Negative Hepatitis A Antibody Total Positive (Negative) Hepatitis B Surface Antigen Negative (Negative) Hepatitis B Surface Antibody Positive (Negative) Hepatitis B Core Total Antibody Negative (Negative) Hepatitis B Core IgM Antibody Negative (Negative) Hepatitis C Antibody Negative (Negative) Test 02/09/25 23:40 Lipase 33 U/L (12-53) Other Laboratory Tests 02/15/25 06:28 Brief Hx & Hospital Course: 29-year-old female presents for evaluation of abdominal pain. Patient with a history of liver cirrhosis secondary to alcohol abuse currently an active drinker reports a one day history of mid sharp abdominal pain with associated nausea and vomiting. Denies hematemesis or melena. No other acute complaints. Alcohol hepatitis treated with prednisone, her bilirubin came down Also developed SVT that responded to valsalva, had echo with normal EF and saw cardiology recommended low dose metoprolol Condition at Discharge: Good Final Diagnosis/Problems List acute hepatic encephalopathy acute alcoholic hepatitis SVT type 2 DE Discharge Disposition: Home Discharge Instruct/Medications Diet: Regular Activity: No Restrictions, As Tolerated Follow Up/Referral: PCP and GI in 7 days Medications: prednisone, metoprolol. Scheduled Methylprednisolone (Medrol Dosepak), 4 MG PO UD Metoprolol Succinate (Toprol Xl), 25 MG PO DAILY Pantoprazole Sodium Sesquihydr (Pantoprazole Sodium), 40 MG PO DAILY Prednisone (Prednisone), 40 MG PO DAILY Miscellaneous Medications Diclofenac Sodium (Topical) (Aleve Arthritis Pain), (Reported) Discharge Statement: "Patient was advised to return to the ER or call 911 if any headaches, dizziness, shortness of breath, chest pain, abdominal pain, bleeding, fevers, or worsening of medical condition. Patient was counseled about treatment plan, medications, possible side effects, patientverbalized understanding. All questions were answered to the best of my ability. This discharge took greater then 30 minutes in planning, reviewing documentation, counseling the patient, and discussing with other team members." ASSESSMENT ASSESSMENT Assessment acute hepatic encephalopathy acute alcoholic hepatitis SVT type 2 DE Date of Service: Feb 15, 2025 Billing Provider: RADHA MYLES MD Common Visit Codes: 70452-KEU/OBS DISCH DAY >30min RADHA MYLES MD Feb 15, 2025 15:43
== END 2025-02-15 14:21 | disposition home or self-care (01) | DRG 280 ==
LOC: ER 22:33 → OVERFLOW 02-10 01:05 → WEST WING 02-10 14:41 → TELE-WESTW 02-12 16:02
PROVIDERS: ADMIT Hospitalist; ATTEND Hospitalist
DX: K70.10 Alcoholic hepatitis without ascites (principal); K70.30 Alcoholic cirrhosis of liver without ascites; I21.A1 Myocardial infarction type 2; K76.82 Hepatic encephalopathy; D53.9 Nutritional anemia, unspecified; F10.229 Alcohol dependence with intoxication, unspecified; K80.20 Calculus of gallbladder without cholecystitis without obstruction; I47.10 Supraventricular tachycardia, unspecified; R16.2 Hepatomegaly with splenomegaly, not elsewhere classified; G89.29 Other chronic pain; M54.9 Dorsalgia, unspecified
CPT/HCPCS: 36415; 76705; 80048; 80053; 80074; 80320; 82140; 82248; 82306; 82607; 82728; 83540; 83550; 83690; 83735; 83880; 84443; 84484; 85025; 85610; 85730; 86038; 86704; 86706; 86708; 86803; 87340; 93005; 93306; 96361; 96374; G0378; J0153; J2405; J2470; J3480